=== PATIENT | male | born 1950 | race Caucasian/White ===

== ENCOUNTER 2016-12-21 07:23 | Day surgery (SDC) | payer BC ==
[2016-12-20 16:04] VITALS: BMI 32.8
[2016-12-21 08:06] VITALS: TEMP 96.7
[2016-12-21 11:57] LABS: PLEURAL FLUID SOURCE LFET PLEURAL
[2016-12-21 11:58] LABS: PLEURAL FLUID APPEARANCE CLOUDY; PLEURAL FLUID COLOR RED
[2016-12-21 12:18] LABS: PLEURAL FLUID LYMPHOCYTES 78 %; PLEURAL FLUID NEUTROPHIL 5 %
[2016-12-21 12:19] LABS: PLEURAL FLUID MACROPHAGES 3 %
[2016-12-21 12:32] LABS: GLUCOSE,PLEURAL FLUID 145.794; TOTAL PROTEIN,PLEURAL FLUID 4.753
[2016-12-21 14:55] VITALS: BP 104/60; PULSE 90
--- NOTE | 2016-12-24 13:37 | PATH ---
Cytology Non-Gynecological Report Patient Name: STEPHANY MEDINA [facility]. Rec. #: [id number] /Age/Gender: 1950 (Age: 66) / M Account: [id number] Location: RADIOLOGY Taken: 12/21/2016 Received: 12/21/2016 Reported: 12/24/2016 Physicians: Nathanael Alvarado M.D. Specimen(s) Received A: LEFT PLEURAL FLUID IN 50% ALCOHOL B: LEFT PLEURAL FLUID FRESH Clinical History Left pleural effusion Final Diagnosis A,B. PLEURAL FLUID, LEFT, THORACENTESIS: SATISFACTORY FOR EVALUATION. NO MALIGNANT CELLS IDENTIFIED. REACTIVE MESOTHELIAL CELLS, HISTIOCYTES AND LYMPHOCYTES. Electronically Signed Philip Villanueva M.D. Gross Description A. Received is a 50 cc of bloody colored fluid in 50% alcohol. One cytofunnel slide and one cell block are made. B. Received is 1200 cc of bloody colored fluid fresh. One cytofunnel slide and one cell block are made.
== END 2016-12-21 14:57 | disposition home or self-care (01) ==
LOC: JRADIR 07:23
PROVIDERS: ATTEND Internal Medicine Cardiovascular Disease
PROC: 0W9B3ZZ Drainage of Left Pleural Cavity, Percutaneous Approach (ICD-10-PCS; principal; 2016-12-21)
PROC: BB4BZZZ Ultrasonography of Pleura (ICD-10-PCS; 2016-12-21)
DX: J90 Pleural effusion, not elsewhere classified (principal)
CPT/HCPCS: 71010-TC; 76942; 82042; 82150; 82438; 82945; 83615; 84157; 84311; 84478; 87070; 87075; 87102; 87116; 87205; 87206; 87210; 88108; 88305-TC; 89051

== ENCOUNTER 2017-01-17 07:30 | Day surgery (SDC) | payer BC ==
[2017-01-16 14:36] VITALS: BMI 32.6
[2017-01-17 08:11] VITALS: TEMP 97.9
[2017-01-17 08:25] LABS: INR 1.09 (0.82-1.09)
[2017-01-17 11:14] VITALS: BP 137/64; PULSE 87
[2017-01-17 11:18] LABS: GLUCOSE,PLEURAL FLUID 133.704; TOTAL PROTEIN,PLEURAL FLUID 5.437
[2017-01-17 11:22] LABS: PLEURAL FLUID APPEARANCE HAZY; PLEURAL FLUID COLOR AMBER; PLEURAL FLUID SOURCE LEFT PLEURAL
[2017-01-17 11:59] LABS: PLEURAL FLUID LYMPHOCYTES 58 %; PLEURAL FLUID MACROPHAGES 38 %; PLEURAL FLUID NEUTROPHIL 2 %
--- NOTE | 2017-01-18 15:27 | PATH ---
Cytology Non-Gynecological Report Patient Name: STEPHANY MEDINA [facility]. Rec. #: [id number] /Age/Gender: 1950 (Age: 66) / M Account: [id number] Location: RADIOLOGY Taken: 01/17/2017 Received: 01/18/2017 Reported: 01/18/2017 Physicians: Nathanael Alvarado M.D. Specimen(s) Received A: LEFT PLEURAL FLUID IN 50% ALCOHOL B: LEFT PLEURAL FLUID FRESH Clinical History Pleural effusion Final Diagnosis A,B. PLEURAL FLUID, LEFT, THORACENTESIS: SATISFACTORY FOR EVALUATION. NO MALIGNANT CELLS IDENTIFIED. REACTIVE MESOTHELIAL CELLS, HISTIOCYTES AND LYMPHOCYTES. Electronically Signed Philip Villanueva M.D. Gross Description A. Received is a 50 cc of yellow fluid in 50% alcohol. One cytofunnel slide and one cell block are made. B. Received is 2000 cc of bloody in color fluid fresh. One cytofunnel slide and one cell block are made.
== END 2017-01-17 11:19 | disposition home or self-care (01) ==
LOC: JRADIR 07:30
PROVIDERS: ATTEND Internal Medicine Cardiovascular Disease
PROC: 0W9B3ZZ Drainage of Left Pleural Cavity, Percutaneous Approach (ICD-10-PCS; principal; 2017-01-17)
PROC: BB4BZZZ Ultrasonography of Pleura (ICD-10-PCS; 2017-01-17)
DX: J90 Pleural effusion, not elsewhere classified (principal)
CPT/HCPCS: 36415; 71010-TC; 76942; 82042; 82150; 82945; 83615; 84157; 84478; 85610; 87070; 87075; 87102; 87116; 87205; 87206; 87210; 87899; 88108; 88305-TC; 89051

== ENCOUNTER 2017-05-03 21:24 | Inpatient (IN) | payer BC ==
[2017-05-03] MEDS ORDERED: METOPROLOL TARTRATE 5 MG/5 ML VIAL IVPUSH ONE ×2 (21:46→22:44)
[2017-05-03] MEDS ORDERED: METOPROLOL TARTRATE 5 MG/5 ML VIAL ONE ×2 (22:13→23:01)
[2017-05-03 22:20] LABS: BASOPHIL 0.5 % (0-2.0); EOSINOPHIL 2.8 % (0-4.5); MCH 28.1 pg (25.7-33.7); MCHC 33.7 g/dl (32.0-35.9); MEAN CELL VOLUME 83.5 fl (80-96); MEAN PLT VOLUME 8.1 fl (7.5-11.1); NEUTROPHILS 58.9 % (42.8-82.8); PLATELET COUNT 221 K/MM3 (134-434); RDW 19.3 % (11.9-15.9); WHITE BLOOD COUNT 9.7 K/mm3 (4.0-10.0)
[2017-05-03 22:33] LABS: INR 1.1 (0.82-1.09); PROTHROMBIN TIME (PATIENT) 12.1 SEC (9.98-11.88)
[2017-05-03 22:36] LABS: ACTIVATED PTT 28.4 SECONDS (26.9-34.4)
[2017-05-03] MEDS ORDERED: dilTIAZem HCL 50 MG/10 ML - 10 ML VIAL IVPUSH ONE (23:21)
--- NOTE | 2017-05-03 23:32 | PDOC ---
History of Present Illness - General History Source: Patient Exam Limitations: No Limitations - History of Present Illness Initial Comments: 05/03/17 23:43 Patient is a 66 year old female with a significant past medical history of diabetes who presents to the ED with complaints of heart palpitations that began early today. Patient was advised to come to the ED by his PMD due to increase heart rate. Patient reports he has been non compliant with his medications since having his colonoscopy 4 days ago. Patient reports intermittent left leg cramps at night intense keep him from sleeping. He reports experiencing SOB secondary to increased heart rate. Patient reports hx of water in lung, prescribed medication, with slowly reduced dosage over last few months. Denies chest pain. Allergies Social history: Former smoker(10 years). No alcohol. No illicit drugs. Surgical history: Colonoscopy. Heart surgery. . PMD: Nikolai <Javier Dawson - Last Filed: 05/03/17 23:43> <Ashley May - Last Filed: 05/04/17 01:13> - General Chief Complaint: Palpitations Stated Complaint: PALPATATIONS Time Seen by Provider: 05/03/17 21:36 Past History <Javier Dawson - Last Filed: 05/03/17 23:43> - Past Medical History Anemia: No Asthma: No Cancer: No Cardiac Disorders: Yes ("WATER AROUND THE HEART.") CVA: No COPD: No CHF: Yes Dementia: No Diabetes: Yes GI Disorders: No Disorders: No HTN: No Hypercholesterolemia: No Liver Disease: No Seizures: No Thyroid Disease: No - Surgical History Abdominal Surgery: No Appendectomy: No Cardiac Surgery: Yes (CORONARY BYPASS , 2 VESSELS) Cholecystectomy: No Lung Surgery: No Neurologic Surgery: No Orthopedic Surgery: No - Suicide/Smoking/Psychosocial Hx Smoking History: Former smoker Have you smoked in the past 12 months: No If you are a former smoker, when did you quit?: 1999 Information on smoking cessation initiated: No Hx Alcohol Use: No Drug/Substance Use Hx: No Substance Use Type: Alcohol Hx Substance Use Treatment: No <Ashley May - Last Filed: 05/04/17 01:13> - Past Medical History Allergies/Adverse Reactions: Allergies Allergy/AdvReac Type Severity Reaction Status Date / Time No Known Allergies Allergy Verified 05/03/17 21:31 Home Medications: Ambulatory Orders Amiodarone HCl 200 mg PO DAILY 12/20/16 Aspirin [Aspirin EC] 81 mg PO DAILY 12/20/16 Atorvastatin Calcium 20 mg PO HS 12/20/16 Furosemide [Lasix] 80 mg PO DAILY 12/20/16 Glyburide 5 mg PO BID 12/20/16 Levothyroxine Sodium [Unithroid] 75 mg PO DAILY 12/20/16 Metoprolol Succinate [Toprol XL -] 25 mg PO DAILY 12/20/16 Potassium Chloride [Klor-Con M20] 40 meq PO BID 12/20/16 Sitagliptin Phos/Metformin HCl [Janumet 50-1,000 mg Tablet] 1 tablet PO BID 06/28 Review of Systems - Review of Systems Able to Perform ROS?: Yes Comments:: 05/03/17 23:43 GENERAL/CONSTITUTIONAL: No fever or chills. No weakness. HEAD, EYES, EARS, NOSE AND THROAT: No change in vision. No ear pain or discharge. No sore throat. GASTROINTESTINAL: No nausea, vomiting, diarrhea or constipation. GENITOURINARY: No dysuria, frequency, or change in urination. CARDIOVASCULAR: +SOB No chest pain RESPIRATORY: No cough, wheezing, or hemoptysis. MUSCULOSKELETAL: No joint or muscle swelling or pain. No neck or back pain. SKIN: No rash NEUROLOGIC: No headache, vertigo, loss of consciousness, or change in strength/ sensation. ENDOCRINE: No increased thirst. No abnormal weight change. HEMATOLOGIC/LYMPHATIC: No anemia, easy bleeding, or history of blood clots. ALLERGIC/IMMUNOLOGIC: No hives or skin allergy. All Other Systems: Reviewed and Negative <Javier Dawson - Last Filed: 05/03/17 23:43> *Physical Exam - Vital Signs Last Vital Signs Temp Pulse Resp BP Pulse Ox 98.1 F 148 H 20 97/66 96 05/03/17 21:29 05/03/17 23:05/03/17 21:29 05/03/17 23:05/03/17 21:29 - Physical Exam Comments: 05/03/17 23:44 GENERAL: Awake, alert, and fully oriented, in no acute distress HEAD: No signs of trauma EYES: PERRLA, EOMI, sclera anicteric, conjunctiva clear ENT: Auricles normal inspection, hearing grossly normal, nares patent, oropharynx clear without exudates. Moist mucosa NECK: Normal ROM, supple, no lymphadenopathy, JVD, or masses LUNGS: +Diminished breath sounds at bases. Clear to auscultation bilaterally. No wheezes, and no crackles HEART: +Tachycardic. Regular rate and rhythm, normal S1 and S2, no murmurs, rubs or gallops ABDOMEN: +Obese belly. Soft, nontender, normoactive bowel sounds. No guarding, no rebound. No masses EXTREMITIES: +No lower extremity edema bilaterally. Normal range of motion No clubbing or cyanosis. No cords, erythema, or tenderness NEUROLOGICAL: Cranial nerves II through XII grossly intact. Normal speech, SKIN: Warm, Dry, normal turgor, no rashes or lesions noted. <Javier Dawson - Last Filed: 05/03/17 23:43> - Vital Signs Last Vital Signs Temp Pulse Resp BP Pulse Ox 98.1 F 148 H 20 97/66 96 05/03/17 21:29 05/03/17 23:09 05/03/17 21:29 05/03/17 23:09 05/03/17 21:29 <Ashley May - Last Filed: 05/04/17 01:13> ED Treatment Course - LABORATORY CBC & Chemistry Diagram: 05/03/17 22:07 05/03/17 22:07 - ADDITIONAL ORDERS Additional order review: Laboratory Results 05/03/17 05/03/17 05/03/17 22:07 22:07 22:07 PT with INR 12.10 H INR 1.10 PTT (Actin FS) 28.4 Sodium Cancelled Potassium Cancelled Chloride Cancelled Carbon Dioxide Cancelled Anion Gap Cancelled BUN Cancelled Creatinine Cancelled Creat Clearance w eGFR Cancelled Random Glucose Cancelled Calcium Cancelled Magnesium Cancelled Total Bilirubin Cancelled AST Cancelled ALT Cancelled Alkaline Phosphatase Cancelled Creatine Kinase Cancelled Troponin I Cancelled B-Natriuretic Peptide 1325.60 H Total Protein Cancelled Albumin Cancelled 05/03/17 22:07 RBC 4.17 MCV 83.5 MCHC 33.7 RDW 19.3 H MPV 8.1 Neutrophils % 58.9 Lymphocytes % 22.1 D Monocytes % 15.7 H Eosinophils % 2.8 Basophils % 0.5 - Medications Given in the ED: ED Medications Discontinued Medications Generic Name Dose Route Start Last Admin Trade Name Freq PRN Reason Stop Dose Admin Metoprolol Tartrate 5 mg 05/03/17 21:46 05/03/17 22:20 Lopressor Injection - IVPUSH 05/03/17 21:47 5 mg ONCE ONE Administration Metoprolol Tartrate 5 mg 05/03/17 22:44 05/03/17 23:09 Lopressor Injection - IVPUSH 05/03/17 22:45 5 mg ONCE ONE Administration <Javier Dawson - Last Filed: 05/03/17 23:43> - LABORATORY CBC & Chemistry Diagram: 05/03/17 22:07 05/04/17 00:12 - ADDITIONAL ORDERS Additional order review: Laboratory Results 05/03/17 05/03/17 05/03/17 22:07 22:07 22:07 PT with INR 12.10 H INR 1.10 PTT (Actin FS) 28.4 Sodium Cancelled Potassium Cancelled Chloride Cancelled Carbon Dioxide Cancelled Anion Gap Cancelled BUN Cancelled Creatinine Cancelled Creat Clearance w eGFR Cancelled Random Glucose Cancelled Calcium Cancelled Magnesium Cancelled Total Bilirubin Cancelled AST Cancelled ALT Cancelled Alkaline Phosphatase Cancelled Creatine Kinase Cancelled Troponin I Cancelled B-Natriuretic Peptide 1325.60 H Total Protein Cancelled Albumin Cancelled 05/03/17 22:07 RBC 4.17 MCV 83.5 MCHC 33.7 RDW 19.3 H MPV 8.1 Neutrophils % 58.9 Lymphocytes % 22.1 D Monocytes % 15.7 H Eosinophils % 2.8 Basophils % 0.5 - RADIOLOGY Radiology Studies Ordered: Category Date Time Status CHEST X-RAY PORTABLE* [RAD] Stat Radiology 05/03/17 21:46 Taken - Medications Given in the ED: ED Medications Discontinued Medications Generic Name Dose Route Start Last Admin Trade Name [id number] PRN Reason Stop Dose Admin Metoprolol Tartrate 5 mg 05/03/17 21:46 05/03/17 22:20 Lopressor Injection - IVPUSH 05/03/17 21:47 5 mg ONCE ONE Administration Metoprolol Tartrate 5 mg 05/03/17 22:44 05/03/17 23:09 Lopressor Injection - IVPUSH 05/03/17 22:45 5 mg ONCE ONE Administration <Ashley May - Last Filed: 05/04/17 01:13> Medical Decision Making - Medical Decision Making 05/03/17 23:[address] Flores @23:25pm. Dr. Perez Covering. Awaiting call back. Dr. Perez called back @23:30pm. Case discussed. <Javier Dawson - Last Filed: 05/03/17 23:43> - Critical Care Time Total Critical Care Time (minutes): 45 Critical Care Statement: The care of this patient involved high complexity decision making to prevent further life threatening deterioration of the patient 's condition and/or to evaluate & treat vital organ system(s) failure or risk of failure. - Medical Decision Making 05/04/17 00:25 a/p: 66yo male with aflutter after stopping his metoprolol earlier tonight. -pt with aflutter in the ED -labs -ekg -cxr -trops -cards discussion 05/04/17 00:35 pt still tachy - will start cardizem gtt case discussed with dr. coyne who will see the patient in consult. -case discussed with Keena from ICU who will see the patient in consult and accepts pt to ICU case discussed with DR. Perez who accepts admission. pt updated and agrees to stay for further eval 05/04/17 00:38 pt updated on labs and imaging. willing to stay for furhter eval. 05/04/17 01:13 pt going up to ICU bed 6 <Ashley May - Last Filed: 05/04/17 01:13> *DC/Admit/Observation/Transfer - Attestations Scribe Attestion: 05/03/17 23:44 Documentation prepared by Javier Dawson, acting as medical records administrator for Ashley May DO, MD/. <Javier Dawson - Last Filed: 05/03/17 23:43> - Discharge Dispostion Admit: Yes - Attestations Physician Attestion: 05/04/17 00:46 I, Dr. Ashley May DO, attest that this document has been prepared under my direction and personally reviewed by me in its entirety. I further attest, that it accurately reflects all work, treatment, procedures and medical decision -making performed by me. <Ashley May - Last Filed: 05/04/17 01:13> Diagnosis at time of Disposition: Flutter-fibrillation - Discharge Dispostion Condition at time of disposition: Guarded - Referrals
[2017-05-04] MEDS ORDERED: SODIUM CHLORIDE 0.9% 1000 ML INFUS.BAG IV ONE (00:04)
[2017-05-04] MEDS ORDERED: dilTIAZem HCL 60 MG TABLET (FP) ONE (00:20)
[2017-05-04] MEDS ORDERED: DILTIAZEM INJECTION 125 MG in DEXTROSE 5%-WATER - 100 ML IVPB SCH ×2 (00:30→09:42)
[2017-05-04] MEDS: dilTIAZem HCL 60 MG TABLET (FP) PO SCH ×4 (00:39→17:36)
[2017-05-04 00:47] LABS: ALBUMIN 3.1 g/dl (3.4-5.0); ANION GAP 8 (8-16); BILIRUBIN,TOTAL 0.6 mg/dL (0.2-1.0); CALCIUM 8.3 mg/dL (8.5-10.1); CO2 27 mmol/L (21-32); CREATININE 0.9 mg/dL (0.7-1.3); GLUCOSE,RANDOM 151 mg/dL (74-106); SGOT/AST 44 U/L (15-37); SGPT/ALT 94 U/L (12-78)
[2017-05-04 00:51] LABS: ALK PHOS 46 U/L (45-117); CPK 224 IU/L (39-308); TOT PROT 6.7 g/dl (6.4-8.2); TROPONIN I < 0.02 ng/ml (0.00-0.05)
[2017-05-04 01:23] LABS: THYROID STIMULATING HORMONE 4.57 uIU/ml (0.358-3.74)
[2017-05-04 02:05] VITALS: BMI 34.4
--- NOTE | 2017-05-04 02:44 | CONSULT ---
Consult Consult Specialty:: Pulm/CCM Reason for Consultation:: Refractory A-flutter with RVR - History of Present Illness Chief Complaint: Palpitations History of Present Illness: 66yom with PMHx of DMII, HLD, CAD s/p CABG in 12/26, recurrent pleural effusions , A-fib with RVR that was being treated with metoprolol, coumadin and Lasix. Pt stopped his meds last week for a routine colonoscopy and did not restart them. He stated that he began to experience some dyspnea with exertion and on a routine pulmonology follow up was noted to be in A-flutter to 150's. He was restarted on coumadin and sent to the ER for evaluation. In ER HR 149 A-flutter, BP 110/72. There was no improvement in HR with Lopressor 5 IV x2 and transient improvement with cardiazem 20 IV to HR 115 but not fully controlled. He was started on cardiazem drip and transferred to ICU for monitoring. Labs notable for INR 1.1, trop neg, BNP 1356, elevated CK-MB, AST/ALT. In ICU received A+O x3. HR 110 A-fib/flutter on cardiazem drip 10mg/hr, BP 109/ 80, RR25 O2 sat 93% on room air. He c/o palpitations and slight SOB but denied CP, lightheadedness, dizziness. Cardiazem drip increased to 15mg/h. Heparin drip started. Placed on NC O2 2L. - History Source History Provided By: Patient, Medical Record Limitations to Obtaining History: No Limitations - Past Medical History Cardio/Vascular: Yes: AFIB, CAD Pulmonary: Yes: Other (Recurrent bilat pleural effusions) Endocrine: Yes: Diabetes Mellitus - Past Surgical History Past Surgical History: Yes: CABG - Alcohol/Substance Use Hx Alcohol Use: No - Smoking History Smoking history: Former smoker Have you smoked in the past 12 months: No If you are a former smoker, when did you quit?: 1999 - Social History History of Recent Travel: No Home Medications - Allergies Allergies/Adverse Reactions: Allergies Allergy/AdvReac Type Severity Reaction Status Date / Time No Known Allergies Allergy Verified 05/03/17 21:31 - Home Medications Home Medications: Ambulatory Orders Amiodarone HCl 200 mg PO DAILY 12/20/16 Aspirin [Aspirin EC] 81 mg PO DAILY 12/20/16 Atorvastatin Calcium 20 mg PO HS 12/20/16 Furosemide [Lasix] 80 mg PO DAILY 12/20/16 Glyburide 5 mg PO BID 12/20/16 Levothyroxine Sodium [Unithroid] 75 mg PO DAILY 12/20/16 Metoprolol Succinate [Toprol XL -] 25 mg PO DAILY 12/20/16 Potassium Chloride [Klor-Con M20] 40 meq PO BID 12/20/16 Sitagliptin Phos/Metformin HCl [Janumet 50-1,000 mg Tablet] 1 tablet PO BID 06/28 Family Disease History - Family Disease History Family History: Unremarkable Review of Systems - Review of Systems Cardiovascular: reports: Palpitations Respiratory: reports: SOB on Exertion Gastrointestinal: reports: No Symptoms Neurological: reports: No Symptoms Endocrine: reports: No Symptoms Psychiatric: reports: No Symptoms Physical Exam Vital Signs: Vital Signs Temperature 99.1 F 05/04/17 01:56 Pulse Rate 119 H 05/04/17 02:00 Respiratory Rate 20 05/04/17 02:00 Blood Pressure 109/80 05/04/17 02:00 O2 Sat by Pulse Oximetry (%) 96 05/03/17 21:29 Constitutional: Yes: No Distress, Calm, Obese Eyes: Yes: WNL HENT: Yes: Normocephalic Neck: Yes: Supple, Trachea Midline Cardiovascular: Yes: Pulse Irregular Respiratory: Yes: Regular, Diminished, On Nasal O2 Gastrointestinal: Yes: Soft, Abdomen, Obese Renal/: Yes: WNL Extremities: Yes: WNL Edema: No Peripheral Pulses WNL: Yes Neurological: Yes: Alert, Oriented ...Motor Strength: WNL Psychiatric: Yes: WNL Labs: CBC,CMP WBC 9.7 K/mm3 (4.0-10.0) D 05/03/17 22:07 RBC 4.17 M/mm3 (4.00-5.60) 05/03/17 22:07 Hgb 11.7 GM/dL (11.7-16.9) 05/03/17 22:07 Hct 34.8 % (35.4-49) L 05/03/17 22:07 MCV 83.5 fl (80-96) 05/03/17 22:07 MCH 28.1 pg (25.7-33.7) 05/03/17 22:07 MCHC 33.7 g/dl (32.0-35.9) 05/03/17 22:07 RDW 19.3 % (11.9-15.9) H 05/03/17 22:07 Plt Count 221 K/MM3 (134-434) D 05/03/17 22:07 MPV 8.1 fl (7.5-11.1) 05/03/17 22:07 Neutrophils % 58.9 % (42.8-82.8) 05/03/17 22:07 Lymphocytes % 22.1 % (8-40) D 05/03/17 22:07 Monocytes % 15.7 % (3.8-10.2) H 05/03/17 22:07 Eosinophils % 2.8 % (0-4.5) 05/03/17 22:07 Basophils % 0.5 % (0-2.0) 05/03/17 22:07 Sodium 137 mmol/L (136-145) 05/04/17 00:12 Potassium 4.1 mmol/L (3.5-5.1) 05/04/17 00:12 Chloride 102 mmol/L (98-107) 05/04/17 00:12 Carbon Dioxide 27 mmol/L (21-32) 05/04/17 00:12 Anion Gap 8 (8-16) 05/04/17 00:12 BUN 25 mg/dL (7-18) H D 05/04/17 00:12 Creatinine 0.9 mg/dL (0.7-1.3) 05/04/17 00:12 Creat Clearance w eGFR > 60 (>60) 05/04/17 00:12 Random Glucose 151 mg/dL (74-106) H 05/04/17 00:12 Calcium 8.3 mg/dL (8.5-10.1) L 05/04/17 00:12 Magnesium Cancelled 05/03/17 22:07 Total Bilirubin 0.6 mg/dL (0.2-1.0) D 05/04/17 00:12 AST 44 U/L (15-37) H 05/04/17 00:12 ALT 94 U/L (12-78) H 05/04/17 00:12 Alkaline Phosphatase 46 U/L (45-117) 05/04/17 00:12 Creatine Kinase 224 IU/L (39-308) 05/04/17 00:12 Creatine Kinase Index 1.8 % (0.0-5.0) 05/04/17 00:12 CK-MB (CK-2) 4.155 ng/mL (0.5-3.6) H 05/04/17 00:12 Troponin I < 0.02 ng/ml (0.00-0.05) 05/04/17 00:12 B-Natriuretic Peptide 1325.60 pg/ml (5-125) H 05/03/17 22:07 Total Protein 6.7 g/dl (6.4-8.2) 05/04/17 00:12 Albumin 3.1 g/dl (3.4-5.0) L 05/04/17 00:12 TSH 4.57 uIU/ml (0.358-3.74) H 05/04/17 00:12 INR, PTT INR 1.10 (0.82-1.09) 05/03/17 22:07 Active Medications Amiodarone HCl (Cordarone -) 200 mg PO DAILY [facility] Aspirin (Ecotrin -) 81 mg PO DAILY [facility] Diltiazem HCl (Cardizem -) 60 mg PO Q6HPO [facility] Last Admin: 05/04/17 00:39 Dose: 60 mg Furosemide (Lasix Injection -) 40 mg IVPUSH DAILY [facility] Glyburide (Diabeta -) 5 mg PO BIDAC [facility] Heparin Sodium (Porcine) (Heparin -) 1,000 unit IVPUSH PRN PRN PRN Reason: Heparin Heparin Sodium (Porcine) (Heparin -) 5,000 unit IVPUSH PRN PRN PRN Reason: Heparin Diltiazem HCl 125 mg/ Dextrose 125 mls @ 5 mls/hr IVPB TITR [facility]; 5 MG/HR PRN Reason: Protocol Last Titration: 05/04/17 01:55 Dose: 15 mg/hr Heparin Sodium (Porcine) 25, (000 unit/ Sodium Chloride) 500 mls @ 20 mls/hr IV TITR [facility]; 1,000 UNIT/HR PRN Reason: Protocol Insulin Aspart (Novolog Vial Sliding Scale -) 1 vial SQ ACHS [facility] PRN Reason: Protocol Levothyroxine Sodium (Synthroid -) 75 mcg PO DAILY@0700 [facility] Non-Formulary Medication (Atorvastatin Calcium) 20 mg PO HS [facility] Non-Formulary Medication (Sitagliptin Phos/Metformin Hcl [Janumet 50-1,000 Mg Tablet]) 1 tablet PO BID [facility] Pneumococcal 13-Valent Conj Vacc (Prevnar 13 Syringe -) 0.5 ml IM .ONCE ONE Stop: 05/04/17 02:06 Potassium Chloride (K-Dur -) 40 meq PO BID [facility] Intake & Output 05/01/17 05/02/17 05/03/17 05/04/17 23:59 23:59 23:59 23:59 Weight 104.326 kg 105.9 kg Imaging - Results Chest X-ray: Image Reviewed (trace bilat effusions L>R) Problem List - Problems (1) Flutter-fibrillation Code(s): I49.8 - OTHER SPECIFIED CARDIAC ARRHYTHMIAS (2) SOB (shortness of breath) on exertion Code(s): R06.02 - SHORTNESS OF BREATH Assessment/Plan 66yom with PMHx DMII. CAD s/p CABG c/b A-fib now with A-fib with RVR 2/2 to med non-compliance and requiring cardizem drip. Plan: -Cardizem drip for rate control goal HR 60-90 -Hold for SBP < 90 -Consider amiodarone bolus and drip if no improvement -Heparin dip for therapeutic PTT -Cont coumadin for INR 2-3 -Cont statin and aspirin - NC O2 support for O2 sat>95% -TTE in am -Trend BNP -Lasix IV for goal net neg -fingersticks -Cont DMII regimen -Cardiac diet as denzel -DVT proph and PPI ITZEL Griffith [facility] time 35mins
[2017-05-04] MEDS ORDERED: HEPARIN NA (PORCINE) 5,000 UNITS/ML 1ML VIAL IVPUSH PRN ×4 (03:12→03:37)
[2017-05-04] MEDS ORDERED: HEPARIN - 25,000 UNIT in SODIUM CHLORIDE 495 ML IV SCH (03:15)
[2017-05-04] MEDS ORDERED: HEPARIN INFUSION - 500 ML IVPB SCH (03:45)
[2017-05-04 05:54] LABS: BASOPHIL 0.5 % (0-2.0); EOSINOPHIL 2.4 % (0-4.5); MCH 27.9 pg (25.7-33.7); MCHC 33.5 g/dl (32.0-35.9); MEAN CELL VOLUME 83.1 fl (80-96); MEAN PLT VOLUME 8.4 fl (7.5-11.1); NEUTROPHILS 60.6 % (42.8-82.8); PLATELET COUNT 200 K/MM3 (134-434); RDW 19.3 % (11.9-15.9); WHITE BLOOD COUNT 8.4 K/mm3 (4.0-10.0)
[2017-05-04 06:16] LABS: INR 1.11 (0.82-1.09); PROTHROMBIN TIME (PATIENT) 12.2 SEC (9.98-11.88)
[2017-05-04 06:37] LABS: ANION GAP 5 (8-16); BILIRUBIN,TOTAL 0.5 mg/dL (0.2-1.0); CALCIUM 8.5 mg/dL (8.5-10.1); CO2 29 mmol/L (21-32); CREATININE 0.8 mg/dL (0.7-1.3); GLUCOSE,RANDOM 217 mg/dL (74-106); SGOT/AST 36 U/L (15-37); SGPT/ALT 83 U/L (12-78); TOT PROT 6.4 g/dl (6.4-8.2)
[2017-05-04 06:38] LABS: ALK PHOS 42 U/L (45-117)
[2017-05-04] MEDS ORDERED: INSULIN SLIDING SCALE (NOVOLOG) 1 VIAL SQ SCH (07:00)
[2017-05-04] MEDS ORDERED: sitaGLIPtin PHOSPHATE 50 MG TABLET PO SCH (07:00)
[2017-05-04] MEDS ORDERED: glyBURIDE 5 MG TABLET (UD) PO SCH (07:00)
[2017-05-04] MEDS ORDERED: metFORMIN HCL 500 MG TABLET (FP) PO SCH (07:00)
[2017-05-04] MEDS ORDERED: LEVOTHYROXINE NA 75 MCG TABLET (FP) PO SCH (07:00)
[2017-05-04] MEDS ORDERED: PNEUMOC 13-VAL CONJ-DIP CRM/PF 0.5 ML DISP.SYRIN IM ONE (09:00)
[2017-05-04] MEDS ORDERED: FLU VACCINE QUAD 60 MCG/0.5 ML (MDV 17-18) IM ONE (09:00)
--- NOTE | 2017-05-04 09:14 | HP ---
Admitting History and Physical - Admission Chief Complaint: fast heart rate, sent by [employer] History of Present Illness: Had routine visit with [employer] yesterday, noted to have tachycardia, sent to ED and found to be in rapid afib. Patient had CABG surgery 6 mos ago, complicated by pleural effusion, requiring drainage, and had pulmonary follow- up for that. He had a colonoscopy last week and was to hold his coumadin, but stopped all his medications except his diabetic medication and did not restart them (thought he could stop them, as he felt he may not need them any more). No chest pain, did have palpitations yesterday. Patient required cardizem drip , so admitted to ICU. History Source: Patient, Medical Record Limitations to Obtaining History: No Limitations - Past Medical History Cardiovascular: Yes: AFIB, CAD Pulmonary: Yes: Other (Recurrent bilat pleural effusions) Endocrine: Yes: Diabetes Mellitus - Past Surgical History Past Surgical History: Yes: CABG - Smoking History Smoking history: Former smoker Have you smoked in the past 12 months: No If you are a former smoker, when did you quit?: 1999 - Alcohol/Substance Use Hx Alcohol Use: No - Social History Occupation: [employer] History of Recent Travel: No Other Social History: , 2 children Home Medications - Allergies Allergies/Adverse Reactions: Allergies Allergy/AdvReac Type Severity Reaction Status Date / Time No Known Allergies Allergy Verified 05/03/17 21:31 - Home Medications Home Medications: Ambulatory Orders Amiodarone HCl 200 mg PO DAILY 12/20/16 Aspirin [Aspirin EC] 81 mg PO DAILY 12/20/16 Atorvastatin Calcium 20 mg PO HS 12/20/16 Furosemide [Lasix] 80 mg PO DAILY 12/20/16 Glyburide 5 mg PO BID 12/20/16 Levothyroxine Sodium [Unithroid] 75 mg PO DAILY 12/20/16 Metoprolol Succinate [Toprol XL -] 25 mg PO DAILY 12/20/16 Potassium Chloride [Klor-Con M20] 40 meq PO BID 12/20/16 Sitagliptin Phos/Metformin HCl [Janumet 50-1,000 mg Tablet] 1 tablet PO BID 06/28 Family Disease History - Family Disease History Family Disease History: Diabetes: Father, Other: Mother (alcoholism) Review of Systems - Review of Systems Constitutional: denies: Fever, Loss of Appetite Eyes: reports: No Symptoms HENT: denies: Difficult Swallowing, Epistaxis Neck: denies: Decreased ROM, Stiffness, Tenderness Cardiovascular: reports: Palpitations. denies: Chest Pain Respiratory: denies: Cough, Hemoptysis, Wheezing Gastrointestinal: denies: Abdominal Pain, Constipation, Diarrhea, Nausea, Vomiting Genitourinary: denies: Burning, Discharge, Dysuria Physical Examination Vital Signs: Vital Signs Temperature 98.2 F 05/04/17 06:00 Pulse Rate 95 H 05/04/17 06:00 Respiratory Rate 20 05/04/17 06:00 Blood Pressure 111/72 05/04/17 06:00 O2 Sat by Pulse Oximetry (%) 97 05/04/17 03:00 Constitutional: Yes: Well Nourished, No Distress, Calm Eyes: Yes: EOM Intact, PERRL HENT: Yes: Atraumatic, Normocephalic Neck: Yes: Supple Cardiovascular: Yes: Pulse Irregular. No: Murmur Respiratory: Yes: Regular, CTA Bilaterally Gastrointestinal: Yes: Normal Bowel Sounds, Soft. No: Distention, Tenderness Edema: No Neurological: Yes: Alert, Oriented Labs: CBC, BMP 05/04/17 05:15 05/04/17 05:15 Imaging - Results Chest X-ray: Report Reviewed (-cardiomegaly, prior OHS) Problem List - Problems (1) Atrial fibrillation with RVR Assessment/Plan: -on cardizem drip, heparin drip (to convert to Eliquis, as will need AC following hospital too) -cardio consulted Code(s): I48.91 - UNSPECIFIED ATRIAL FIBRILLATION (2) CAD (coronary artery disease) Assessment/Plan: -restarted on aspirin, lipitor Code(s): I25.10 - ATHSCL HEART DISEASE OF [place] CORONARY ARTERY W/O ANG PCTRS (3) Hx of CABG Assessment/Plan: --restarted on cardiac medications Code(s): Z95.1 - PRESENCE OF AORTOCORONARY BYPASS GRAFT (4) Diabetes mellitus Assessment/Plan: -follow FS here in hospital, to continue oral hypoglycemics Code(s): E11.9 - TYPE 2 DIABETES MELLITUS WITHOUT COMPLICATIONS (5) Hypothyroid Assessment/Plan: -TSH elevated -follow for now -may need adjustment in synthroid dose Code(s): E03.9 - HYPOTHYROIDISM, UNSPECIFIED (6) CHF (congestive heart failure) Assessment/Plan: -lasix IV for now Code(s): I50.9 - HEART FAILURE, UNSPECIFIED (7) Pleural effusion Assessment/Plan: -CXR not showing much effusion currently Code(s): J90 - PLEURAL EFFUSION, NOT ELSEWHERE CLASSIFIED
--- NOTE | 2017-05-04 09:35 | PN ---
Progress Note (short form) - Note Progress Note: PULMONARY/CCM Pt seen and examined in the ICU. Agree with overnight [employer] plan, heart rates better now better controlled on PO meds. Titrate off cardizem gtt and can monitor on telemetry. Jose Bonilla MD
--- NOTE | 2017-05-04 09:45 | EKG ---
Test Reason : Blood Pressure : / mmHG Vent. Rate : 115 BPM Atrial Rate : 293 BPM P-R Int : 000 ms QRS Dur : 104 ms QT Int : 228 ms P-R-T Axes : 078 -49 241 degrees QTc Int : 315 ms ATRIAL FLUTTER WITH VARIABLE A-V BLOCK INCOMPLETE RIGHT BUNDLE BRANCH BLOCK LEFT ANTERIOR FASCICULAR BLOCK NONSPECIFIC ST AND T WAVE ABNORMALITY ABNORMAL ECG Confirmed by MD LEILA, HOME ([id number]) on 05/04/2017 9:45:04 AM Referred By: Confirmed By:HOME DEE MD
[2017-05-04] MEDS ORDERED: ASPIRIN COATED 81 MG TABLET.EC PO SCH (10:00)
[2017-05-04] MEDS ORDERED: AMIODARONE HCL 200 MG TABLET (FP) PO SCH (10:00)
[2017-05-04] MEDS ORDERED: FUROSEMIDE 40 MG/4 ML INJECTABLE VIAL IVPUSH SCH ×2 (10:00)
[2017-05-04] MEDS ORDERED: POTASSIUM CHLORIDE TABS 20 MEQ TABLET.ER (FP) PO SCH (10:00)
[2017-05-04] MEDS ORDERED: APIXABAN 5 MG TABLET PO SCH (10:00)
[2017-05-04] MEDS ORDERED: PATIENT'S OWN MEDICATION (NON-FORMULARY) (Sitagliptin Phos/Metformin Hcl [Janumet 50-1,000 PO SCH (10:00)
--- NOTE | 2017-05-04 10:56 | CON.CARD ---
Cardiology Consult (text) - Consultation Consultation Note: cc: palps, aflutter with rvr hpi: 66 m hx dm, hld, cad s/p cabg 12/2016 with recurrent post op pleural effs, post op afib/flutter that resolved, here with palps, aflutter with rvr. Pt has been feeling well until yesterday when he noticed heart racing, fatigue. Went to pulm visit and found to be back in rvr. He was rec'd to go to ER and initially declined but then later changed his mind due to palps/fatigue. In ER had aflutter with VR 140s. After dilt gtt hr improved and now comfortable, no complaints. Had no cp, sob, dizzy, loc, pnd, orthopnea, le edema. Sees dr cruz for cardio. pmh: per hpi psh: cabg social: no tob fam: no premature cad ros: per hpi; no nvd, cough, nasal congestion, orta, vision changes, gib, hematuria, dysuria, muscle pains meds: Ambulatory Orders Amiodarone HCl 200 mg PO DAILY 12/20/16 Aspirin [Aspirin EC] 81 mg PO DAILY 12/20/16 Atorvastatin Calcium 20 mg PO HS 12/20/16 Furosemide [Lasix] 80 mg PO DAILY 12/20/16 Glyburide 5 mg PO BID 12/20/16 Levothyroxine Sodium [Unithroid] 75 mg PO DAILY 12/20/16 Metoprolol Succinate [Toprol XL -] 25 mg PO DAILY 12/20/16 Potassium Chloride [Klor-Con M20] 40 meq PO BID 12/20/16 Sitagliptin Phos/Metformin HCl [Janumet 50-1,000 mg Tablet] 1 tablet PO BID 06/28 pe: Vital Signs Period Temp Pulse Resp BP Sys/Suero Pulse Ox Last 24 Hr 98.1 F-99.1 F 95-149 18-24 94-130/64-87 94-97 nad no jvd irreg s1s2 no mrg cta bl nl eff aaox3 no le e/c/c abd nd nt pos bs no jaundice diaphoresis pos dp pt no carotid bruits Laboratory Last Values WBC 8.4 K/mm3 (4.0-10.0) 05/04/17 05:15 RBC 3.92 M/mm3 (4.00-5.60) L 05/04/17 05:15 Hgb 10.9 GM/dL (11.7-16.9) L 05/04/17 05:15 Hct 32.6 % (35.4-49) L 05/04/17 05:15 MCV 83.1 fl (80-96) 05/04/17 05:15 MCH 27.9 pg (25.7-33.7) 05/04/17 05:15 MCHC 33.5 g/dl (32.0-35.9) 05/04/17 05:15 RDW 19.3 % (11.9-15.9) H 05/04/17 05:15 Plt Count 200 K/MM3 (134-434) 05/04/17 05:15 MPV 8.4 fl (7.5-11.1) 05/04/17 05:15 Neutrophils % 60.6 % (42.8-82.8) 05/04/17 05:15 Lymphocytes % 23.0 % (8-40) 05/04/17 05:15 Monocytes % 13.5 % (3.8-10.2) H 05/04/17 05:15 Eosinophils % 2.4 % (0-4.5) 05/04/17 05:15 Basophils % 0.5 % (0-2.0) 05/04/17 05:15 PT with INR 12.20 SEC (9.98-11.88) H 05/04/17 05:15 INR 1.11 (0.82-1.09) 05/04/17 05:15 PTT (Actin FS) 34.5 SECONDS (26.9-34.4) H 05/04/17 08:33 Sodium 136 mmol/L (136-145) 05/04/17 05:15 Potassium 3.9 mmol/L (3.5-5.1) 05/04/17 05:15 Chloride 102 mmol/L (98-107) 05/04/17 05:15 Carbon Dioxide 29 mmol/L (21-32) 05/04/17 05:15 Anion Gap 5 (8-16) L 05/04/17 05:15 BUN 21 mg/dL (7-18) H 05/04/17 05:15 Creatinine 0.8 mg/dL (0.7-1.3) 05/04/17 05:15 Creat Clearance w eGFR > 60 (>60) 05/04/17 05:15 Random Glucose 217 mg/dL (74-106) H D 05/04/17 05:15 Calcium 8.5 mg/dL (8.5-10.1) 05/04/17 05:15 Magnesium Cancelled 05/03/17 22:07 Total Bilirubin 0.5 mg/dL (0.2-1.0) 05/04/17 05:15 AST 36 U/L (15-37) 05/04/17 05:15 ALT 83 U/L (12-78) H 05/04/17 05:15 Alkaline Phosphatase 42 U/L (45-117) L 05/04/17 05:15 Creatine Kinase 224 IU/L (39-308) 05/04/17 00:12 Creatine Kinase Index 1.8 % (0.0-5.0) 05/04/17 00:12 CK-MB (CK-2) 4.155 ng/mL (0.5-3.6) H 05/04/17 00:12 Troponin I < 0.02 ng/ml (0.00-0.05) 05/04/17 00:12 B-Natriuretic Peptide 1325.60 pg/ml (5-125) H 05/03/17 22:07 Total Protein 6.4 g/dl (6.4-8.2) 05/04/17 05:15 Albumin 3.0 g/dl (3.4-5.0) L 05/04/17 05:15 TSH 4.57 uIU/ml (0.358-3.74) H 05/04/17 00:12 ecg 05/03/17: aflutter with rvr 149, nl qtc, no ischemic changes cxr: clear lungs tele: aflutter, hr 90s a/p: 66 m hx dm, hld, cad s/p cabg 12/2016 with recurrent post op pleural effs, post op afib/flutter, here with palps, aflutter with rvr. aflutter with rvr: -pt had hx of post cabg afib/flutter treated temporarily with amio and coumadin -had been feeling well until yesterday when developed rvr again -hr now controlled on dilt gtt. Has been started on po dilt as well. Cont to titrate off dilt gtt. -cont tele -[facility] 3 so has indication for ac. will start eliquis. hld: -cont statin cad, cabg: -stable, no signs acs, no anginal sxs -cont statin, asa recurrent pleural effs post cabg: -required thoracentesis in past -currently no sig pleural effs -pulm following
[2017-05-04] MEDS: APIXABAN 5 MG TABLET PO SCH ×2 (11:27→21:59)
[2017-05-04] MEDS: POTASSIUM CHLORIDE TABS 20 MEQ TABLET.ER (FP) PO SCH ×2 (11:27→21:59)
[2017-05-04] MEDS: ASPIRIN COATED 81 MG TABLET.EC PO SCH (11:27)
[2017-05-04] MEDS ORDERED: HEMOQUE TEST 1 EACH EACH ONE ×2 (11:32→16:54)
[2017-05-04] MEDS: INSULIN SLIDING SCALE (NOVOLOG) 1 VIAL SQ SCH ×3 (11:45→22:00)
[2017-05-04] MEDS: metFORMIN HCL 500 MG TABLET (FP) PO SCH (17:36)
[2017-05-04] MEDS: glyBURIDE 5 MG TABLET (UD) PO SCH (17:37)
[2017-05-04] MEDS: sitaGLIPtin PHOSPHATE 50 MG TABLET PO SCH (17:37)
[2017-05-04] MEDS ORDERED: PT OWN MED DRAWER 7, Y5N ONE (21:44)
[2017-05-04] MEDS ORDERED: ATORVASTATIN CA 20 MG TABLET (FP) PO SCH ×2 (22:00)
[2017-05-05 06:11] LABS: BASOPHIL 0.5 % (0-2.0); MCH 28.5 pg (25.7-33.7); MEAN CELL VOLUME 83.7 fl (80-96); MEAN PLT VOLUME 8.2 fl (7.5-11.1); NEUTROPHILS 62.9 % (42.8-82.8); PLATELET COUNT 216 K/MM3 (134-434); RDW 19.1 % (11.9-15.9); WHITE BLOOD COUNT 7.7 K/mm3 (4.0-10.0)
[2017-05-05 06:13] VITALS: TEMP 98
[2017-05-05] MEDS: sitaGLIPtin PHOSPHATE 50 MG TABLET PO SCH (06:14)
[2017-05-05] MEDS: metFORMIN HCL 500 MG TABLET (FP) PO SCH (06:14)
[2017-05-05] MEDS: glyBURIDE 5 MG TABLET (UD) PO SCH (06:14)
[2017-05-05] MEDS: INSULIN SLIDING SCALE (NOVOLOG) 1 VIAL SQ SCH (06:15)
[2017-05-05 06:38] LABS: ALBUMIN 3.1 g/dl (3.4-5.0); ALK PHOS 42 U/L (45-117); ANION GAP 5 (8-16); BILIRUBIN,TOTAL 0.5 mg/dL (0.2-1.0); CALCIUM 8.4 mg/dL (8.5-10.1); CO2 31 mmol/L (21-32); CREATININE 0.8 mg/dL (0.7-1.3); GLUCOSE,RANDOM 156 mg/dL (74-106); MAGNESIUM 1.9 mg/dL (1.8-2.4); SGOT/AST 37 U/L (15-37); SGPT/ALT 81 U/L (12-78); TOT PROT 6.8 g/dl (6.4-8.2)
[2017-05-05] MEDS ORDERED: LEVOTHYROXINE NA 75 MCG TABLET (FP) PO SCH (07:00)
[2017-05-05] MEDS ORDERED: PT OWN MED DRAWER 7, Y5N ONE (08:20)
--- NOTE | 2017-05-05 08:49 | PN ---
Progress Note (short form) - Note Progress Note: s: no cp sob palps dizzy o: Vital Signs Period Temp Pulse Resp BP Sys/Suero Pulse Ox Last 24 Hr 98 F-98.4 F 80-98 16-20 112-147/55-86 94-97 nad no jvd rrr s1s2 no mrg cta bl nl eff aaox3 no le e/c/c abd nd nt pos bs no jaundice diaphoresis Current Medications Generic Name Dose Route Start Last Admin Trade Name Frehemalatha PRN Reason Stop Dose Admin Apixaban 5 mg 05/04/17 10:00 05/04/17 21:59 Eliquis - PO 5 mg BID PRISCILLA Administration Aspirin 81 mg 05/04/17 10:00 05/04/17 11:27 Ecotrin - PO Not Given DAILY PRISCILLA Atorvastatin Calcium 20 mg 05/04/17 22:00 05/04/17 22:00 Lipitor - PO 20 mg HS PRISCILLA Administration Diltiazem HCl 240 mg 05/05/17 10:00 Cardizem Cd - PO DAILY PRISCILLA Furosemide 40 mg 05/05/17 10:00 Lasix - PO DAILY PRISCILLA Glyburide 5 mg 05/04/17 16:30 05/05/17 06:14 Diabeta - PO 5 mg BIDAC PRISCILLA Administration Diltiazem HCl 125 mg/ Dextrose 125 mls @ 5 mls/hr 05/04/17 09:42 05/04/17 12:00 IVPB Not Given TITR PRISCILLA Protocol 5 MG/HR Insulin Aspart 1 vial 05/04/17 11:00 05/05/17 06:15 Novolog Vial Sliding Scale - SQ Not Given ACHS PRISCILLA Protocol Levothyroxine Sodium 75 mcg 05/05/17 07:00 05/05/17 06:28 Synthroid - PO 75 mcg DAILY@0700 PRISCILLA Administration Metformin HCl 1,000 mg 05/04/17 16:30 05/05/17 06:14 Glucophage - PO 1,000 mg BID@0700,1630 PRISCILLA Administration Potassium Chloride 40 meq 05/04/17 10:00 05/04/17 21:59 K-Dur - PO 40 meq BID PRISCILLA Administration Sitagliptin Phosphate 50 mg 05/04/17 16:30 05/05/17 06:14 Januvia - PO 50 mg BID@0700,1630 PRISCILLA Administration CBC, BMP 05/05/17 05:15 05/05/17 05:15 ecg 05/03/17: aflutter with rvr 149, nl qtc, no ischemic changes cxr: clear lungs tele: sr a/p: 66 m hx dm, hld, cad s/p cabg 12/2016 with recurrent post op pleural effs, post op afib/flutter, here with palps, aflutter with rvr. aflutter with rvr: -pt had hx of post cabg afib/flutter treated temporarily with amio and coumadin -had been feeling well until day of admit when developed rvr again -hr controlled on dilt then went back to SR overnight -cont po dilt cd 240 qd -chadsvasc is 3 so has indication for ac. cont eliquis. hld: -cont statin cad, cabg: -stable, no signs acs, no anginal sxs -cont statin, asa recurrent pleural effs post cabg: -required thoracentesis in past -currently no sig pleural effs -pulm following cardiac barraza stable for dc
--- NOTE | 2017-05-05 09:01 | DS ---
Physical Examination Vital Signs: Vital Signs Temperature 98 F 05/05/17 06:00 Pulse Rate 98 H 05/05/17 06:00 Respiratory Rate 16 05/05/17 06:00 Blood Pressure 147/72 05/05/17 06:00 O2 Sat by Pulse Oximetry (%) 94 L 05/05/17 02:09 Constitutional: Yes: Well Nourished, No Distress Neck: Yes: Supple, Trachea Midline Cardiovascular: Yes: Pulse Irregular, S1, S2. No: Murmur Respiratory: Yes: Regular, CTA Bilaterally. No: Rales, Rhonchi, Wheezes Gastrointestinal: Yes: Normal Bowel Sounds, Soft. No: Distention, Tenderness Edema: No Neurological: Yes: Alert, Oriented Labs: CBC, BMP 05/05/17 05:15 05/05/17 05:15 Discharge Summary Reason For Visit: FLUTTER FIBRILLATION Current Active Problems Atrial fibrillation with RVR (Acute) CAD (coronary artery disease) (Acute) CHF (congestive heart failure) (Acute) Diabetes mellitus (Acute) Flutter-fibrillation (Acute) Hx of CABG (Acute) Hypothyroid (Acute) Pleural effusion (Acute) SOB (shortness of breath) on exertion (Acute) Hospital Course: 66 yo male admitted with afib RVR. Had stopped all cardiac meds prior to hospitalization. had been on coumadin, now on Eliquis, rate controlled with cardizem drip, then transitioned to oral cardizem (now will be off metoprolol). Feels well, no palpitations, no chest pain. Will follow up with cardio post- hospital. Condition: Fair - Instructions Diet, Activity, Other Instructions: diabetic Referrals: Hunter Menchaca MD [Primary Care Provider] - Andrew Jaime MD [Staff Physician] - Disposition: HOME - Home Medications Comprehensive Discharge Medication List: Ambulatory Orders Amiodarone HCl 200 mg PO DAILY 12/20/16 Aspirin [Aspirin EC] 81 mg PO DAILY 12/20/16 Atorvastatin Calcium 20 mg PO HS 12/20/16 Glyburide 5 mg PO BID 12/20/16 Levothyroxine Sodium [Unithroid] 75 mg PO DAILY 12/20/16 Potassium Chloride [Klor-Con M20] 40 meq PO BID 12/20/16 Sitagliptin Phos/Metformin HCl [Janumet 50-1,000 mg Tablet] 1 tablet PO BID 06/28 Apixaban [Eliquis -] 5 mg PO BID #60 tablet 05/05/17 Aspirin Coated [Ecotrin -] 81 mg PO DAILY #30 tab 05/05/17 Diltiazem Cd [Cardizem Cd -] 240 mg PO DAILY #30 cap 05/05/17 Furosemide [Lasix -] 40 mg PO DAILY #30 tablet 05/05/17
[2017-05-05] MEDS: ASPIRIN COATED 81 MG TABLET.EC PO SCH (09:26)
[2017-05-05] MEDS: APIXABAN 5 MG TABLET PO SCH (09:26)
[2017-05-05] MEDS: POTASSIUM CHLORIDE TABS 20 MEQ TABLET.ER (FP) PO SCH (09:26)
[2017-05-05] MEDS ORDERED: FUROSEMIDE 40 MG TABLET (FP) PO SCH ×2 (10:00)
[2017-05-05 10:25] VITALS: BP 142/78; PULSE 118
== END 2017-05-05 10:23 | disposition home or self-care (01) | DRG 310 ==
LOC: JER 21:24 → JERBED 05-04 00:46 → UNDOADMIN 05-04 00:55 → JICU 05-04 01:52 → J2W 05-04 15:14
PROVIDERS: ADMIT Specialist; ATTEND Specialist
DX: I48.91 Unspecified atrial fibrillation (principal); I48.92 Unspecified atrial flutter; E11.9 Type 2 diabetes mellitus without complications; Z87.891 Personal history of nicotine dependence; E78.5 Hyperlipidemia, unspecified; I25.10 Atherosclerotic heart disease of native coronary artery without angina pectoris; Z95.1 Presence of aortocoronary bypass graft; E66.9 Obesity, unspecified; Z91.14 Patient's other noncompliance with medication regimen; E03.9 Hypothyroidism, unspecified; I50.9 Heart failure, unspecified; Z79.84 Long term (current) use of oral hypoglycemic drugs; Z68.34 Body mass index [BMI] 34.0-34.9, adult
CPT/HCPCS: 36415; 71010-TC; 80053; 82553; 83735; 83880; 84100; 84443; 84484; 85025; 85610; 85730; 90670; 90688; 93005; 93010; 99284-25; G0008; G0009; J1644

== ENCOUNTER 2017-05-06 12:43 | Inpatient (IN) | payer BC ==
[2017-05-06 13:01] VITALS: BMI 34.0
[2017-05-06] MEDS ORDERED: ADENOSINE 6 MG/2 ML VIAL IVPUSH ONE ×3 (13:19→13:40)
[2017-05-06] MEDS ORDERED: dilTIAZem HCL 50 MG/10 ML - 10 ML VIAL IVPUSH ONE (13:47)
[2017-05-06] MEDS ORDERED: dilTIAZem HCL 60 MG TABLET (FP) PO ONE (13:48)
[2017-05-06] MEDS ORDERED: dilTIAZem HCL 30 MG TABLET (FP) ONE ×2 (13:52→13:53)
[2017-05-06] MEDS ORDERED: dilTIAZem HCL 125 MG/25 ML - 25 ML VIAL ONE (13:52)
--- NOTE | 2017-05-06 13:52 | PDOC ---
History of Present Illness - General Chief Complaint: Tachycardia Stated Complaint: ELEVATED BP Time Seen by Provider: 05/06/17 13:19 History Source: Patient - History of Present Illness Timing/Duration: reports: constant Past History - Past Medical History Allergies/Adverse Reactions: Allergies Allergy/AdvReac Type Severity Reaction Status Date / Time No Known Allergies Allergy Verified 05/06/17 12:55 Home Medications: Ambulatory Orders Amiodarone HCl 200 mg PO DAILY 12/20/16 Aspirin [Aspirin EC] 81 mg PO DAILY 12/20/16 Glyburide 5 mg PO BID 12/20/16 Levothyroxine Sodium [Unithroid] 75 mg PO DAILY 12/20/16 Potassium Chloride [Klor-Con M20] 40 meq PO BID 12/20/16 Sitagliptin Phos/Metformin HCl [Janumet 50-1,000 mg Tablet] 1 tablet PO BID 06/28 Apixaban [Eliquis -] 5 mg PO BID #60 tablet 05/05/17 Aspirin Coated [Ecotrin -] 81 mg PO DAILY #30 tab 05/05/17 Diltiazem Cd [Cardizem Cd -] 240 mg PO DAILY #30 cap 05/05/17 Furosemide [Lasix -] 40 mg PO DAILY #30 tablet 05/05/17 Atorvastatin Ca [Lipitor] 20 mg PO HS 05/06/17 Anemia: No Asthma: No Cancer: No Cardiac Disorders: Yes ("WATER AROUND THE HEART.") CVA: No COPD: No CHF: Yes Dementia: No Diabetes: Yes GI Disorders: No Disorders: No HTN: Yes Hypercholesterolemia: Yes Liver Disease: No Seizures: No Thyroid Disease: No Other medical history: tachycardia, was hospitalized 2 days ago for - Surgical History Abdominal Surgery: No Appendectomy: No Cardiac Surgery: Yes (CORONARY BYPASS , 2 VESSELS) Cholecystectomy: No Lung Surgery: No Neurologic Surgery: No Orthopedic Surgery: No - Immunization History Immunization Up to Date: Yes - Suicide/Smoking/Psychosocial Hx Smoking History: Former smoker Have you smoked in the past 12 months: No If you are a former smoker, when did you quit?: 2006 Information on smoking cessation initiated: No Hx Alcohol Use: No Drug/Substance Use Hx: No Substance Use Type: Alcohol Hx Substance Use Treatment: No Cardiac Specific PMH - Complaint Specific PMHX Pacemaker: No Review of Systems - Review of Systems Constitutional: No: Chills, Fever Respiratory: No: Cough, Shortness of Breath Cardiac (ROS): Yes: Palpitations. No: Chest Pain, Lightheadedness, Syncope *Physical Exam - Vital Signs Last Vital Signs Temp Pulse Resp BP Pulse Ox 97.8 F 160 H 20 117/91 97 05/06/17 12:55 05/06/17 12:55 05/06/17 12:55 05/06/17 12:55 05/06/17 12:55 - Physical Exam General Appearance: Yes: Appropriately Dressed, Mild Distress HEENT: positive: Normal Voice Neck: positive: Supple Respiratory/Chest: positive: Lungs Clear, Normal Breath Sounds. negative: Respiratory Distress Cardiovascular: positive: S1, S2, Tachycardia Gastrointestinal/Abdominal: positive: Soft Integumentary: positive: Dry, Warm Neurologic: positive: Fully Oriented, Alert, Normal Mood/Affect ED Treatment Course - LABORATORY CBC & Chemistry Diagram: 05/06/17 13:40 05/06/17 13:40 - ADDITIONAL ORDERS Additional order review: Laboratory Results 05/06/17 13:40 Sodium 138 Potassium 4.5 Chloride 100 Carbon Dioxide 28 Anion Gap 10 BUN 22 H D Creatinine 0.9 Creat Clearance w eGFR > 60 Random Glucose 121 H D Calcium 9.3 Total Bilirubin 0.5 AST 64 H D ALT 96 H Alkaline Phosphatase 48 Creatine Kinase 307 Creatine Kinase Index 2.1 CK-MB (CK-2) 6.719 H Troponin I 0.02 Total Protein 7.5 Albumin 3.6 05/06/17 13:40 RBC 4.40 MCV 82.2 MCHC 33.5 RDW 19.2 H MPV 7.9 Neutrophils % 58.1 Lymphocytes % 24.5 D Monocytes % 13.1 H Eosinophils % 3.7 Basophils % 0.6 - RADIOLOGY Radiology Studies Ordered: Category Date Time Status CHEST X-RAY PORTABLE* [RAD] Stat Radiology 05/06/17 13:21 Completed - Medications Given in the ED: ED Medications Discontinued Medications Generic Name Dose Route Start Last Admin Trade Name Freq PRN Reason Stop Dose Admin Adenosine 6 mg 05/06/17 13:19 05/06/17 13:30 Adenocard - IVPUSH 05/06/17 13:20 6 mg ONCE ONE Administration Adenosine 12 mg 05/06/17 13:40 05/06/17 13:40 Adenocard - IVPUSH 05/06/17 13:41 12 mg ONCE ONE Administration Diltiazem HCl 20 mg 05/06/17 13:47 05/06/17 13:58 Cardizem Injection - IVPUSH 05/06/17 13:48 20 mg ONCE ONE Administration Diltiazem HCl 60 mg 05/06/17 13:48 05/06/17 13:58 Cardizem - PO 05/06/17 13:49 60 mg ONCE ONE Administration Medical Decision Making - Medical Decision Making 05/06/17 13:48 66-year-old male history of diabetes, hyperlipidemia, CAD c/p CABG w/ recurrent postop pleural effusions, postop A. fib/flutter, status post recent admission for Afib/aflutter that improved with cardizem drip in the ICU and sent home yesterday with 240 mg Cardizem daily and eliquis, here with palpitations that started today and states when he measured heart rate at home, it was in the 160s. Denies shortness of breath or palpitations. See exam SVT SVT to 150s on EKG -adenosine -labs -cards c/s -admit 05/06/17 14:01 No improvement in heart rate with both 6 mg and 12 mg of adenosine in ED. Case discussed with ED attending, who recommended 20 IV Cardizem with 60 po/ After given IV dose, pt's rpt ekg w/ afib to 120s, though 106 on monitor. Case discussed with Dr. Menchaca, who wants patient admitted to Dr. Flores. Still waiting for rn prior authorization to call back 05/06/17 14:27 HR back to 150s on monitor. As per ED attg, give another 10 mg po cardizem and start on drip 05/06/17 14:58 Case d/w Dr Fuentes who agrees w/ management in ED. Will continue to follow pt 05/06/17 15:15 Sinus tach to 98 BPM on monitor after cardizem drip. Reports feeling better. Dr Flores aware and pt admitted 05/06/17 17:17 *DC/Admit/Observation/Transfer Diagnosis at time of Disposition: Palpitation Afib Qualifiers: Atrial fibrillation type: unspecified Qualified Code(s): I48.91 - Unspecified atrial fibrillation - Discharge Dispostion Condition at time of disposition: Fair Admit: Yes - Referrals
[2017-05-06 14:13] LABS: BASOPHIL 0.6 % (0-2.0); EOSINOPHIL 3.7 % (0-4.5); MCH 27.5 pg (25.7-33.7); MCHC 33.5 g/dl (32.0-35.9); MEAN CELL VOLUME 82.2 fl (80-96); MEAN PLT VOLUME 7.9 fl (7.5-11.1); NEUTROPHILS 58.1 % (42.8-82.8); PLATELET COUNT 250 K/MM3 (134-434); RDW 19.2 % (11.9-15.9); WHITE BLOOD COUNT 7.7 K/mm3 (4.0-10.0)
[2017-05-06 14:24] LABS: ALBUMIN 3.6 g/dl (3.4-5.0); ANION GAP 10 (8-16); BILIRUBIN,TOTAL 0.5 mg/dL (0.2-1.0); CALCIUM 9.3 mg/dL (8.5-10.1); CO2 28 mmol/L (21-32); CPK 307 IU/L (39-308); CREATININE 0.9 mg/dL (0.7-1.3); GLUCOSE,RANDOM 121 mg/dL (74-106); SGPT/ALT 96 U/L (12-78); TOT PROT 7.5 g/dl (6.4-8.2)
[2017-05-06 14:26] LABS: ALK PHOS 48 U/L (45-117); TROPONIN I 0.02 ng/ml (0.00-0.05)
[2017-05-06] MEDS ORDERED: dilTIAZem HCL 50 MG/10 ML - 10 ML VIAL IVPUSH PRN (14:26)
[2017-05-06 14:28] LABS: SGOT/AST 64 U/L (15-37)
[2017-05-06] MEDS ORDERED: DILTIAZEM INJECTION 125 MG in DEXTROSE 5%-WATER - 100 ML IVPB SCH (14:30)
[2017-05-06] MEDS ORDERED: ACETAMINOPHEN 325 MG TABLET (FP) PO PRN (15:43)
--- NOTE | 2017-05-06 15:50 | HP ---
Admitting History and Physical - Primary Care Physician PCP: Hunter Menchaca - Admission Chief Complaint: My heart was going fast History of Present Illness: Mr Lizarraga is a very pleasant 66 year old male who comes in after finding his heart rate was elevated at home. He was recently discharged yesterday after a 24 hour stay secondary to atrial fibrillation with rvr. He was transitioned from diltiazem gtt to oral diltiazem with proper rate control and was discharged home with close follow up. He was without complaint this morning and was checking his heart rate and noted it was at 160. Because of that he came in. He denies fevers, chills, lightheadedness, dizziness, passing out, chest pain, shortness of breath, nausea, vomiting, diarrhea, constipation, difficulty or pain on urination, or swelling. He says he is feeling fine now. History Source: Patient Limitations to Obtaining History: No Limitations - Past Medical History Cardiovascular: Yes: AFIB, CAD Pulmonary: Yes: Other (Recurrent bilat pleural effusions) Endocrine: Yes: Diabetes Mellitus - Past Surgical History Past Surgical History: Yes: CABG - Smoking History Smoking history: Former smoker Have you smoked in the past 12 months: No If you are a former smoker, when did you quit?: 2006 - Alcohol/Substance Use Hx Alcohol Use: No History of Substance Use: reports: None - Social History ADL: Independent Occupation: electronics mechanic apprentice History of Recent Travel: No Home Medications - Allergies Allergies/Adverse Reactions: Allergies Allergy/AdvReac Type Severity Reaction Status Date / Time No Known Allergies Allergy Verified 05/06/17 12:55 - Home Medications Home Medications: Ambulatory Orders Amiodarone HCl 200 mg PO DAILY 12/20/16 Aspirin [Aspirin EC] 81 mg PO DAILY 12/20/16 Glyburide 5 mg PO BID 12/20/16 Levothyroxine Sodium [Unithroid] 75 mg PO DAILY 12/20/16 Potassium Chloride [Klor-Con M20] 40 meq PO BID 12/20/16 Sitagliptin Phos/Metformin HCl [Janumet 50-1,000 mg Tablet] 1 tablet PO BID 06/28 Apixaban [Eliquis -] 5 mg PO BID #60 tablet 05/05/17 Aspirin Coated [Ecotrin -] 81 mg PO DAILY #30 tab 05/05/17 Diltiazem Cd [Cardizem Cd -] 240 mg PO DAILY #30 cap 05/05/17 Furosemide [Lasix -] 40 mg PO DAILY #30 tablet 05/05/17 Atorvastatin Ca [Lipitor] 20 mg PO HS 05/06/17 Family Disease History - Family Disease History Family Disease History: Diabetes: Father, Other: Mother (alcoholism) Review of Systems Findings/Remarks: full review of systems obtained, as per HPI and otherwise negative Physical Examination Vital Signs: Vital Signs Temperature 36.6 C 05/06/17 12:55 Pulse Rate 160 H 05/06/17 12:55 Respiratory Rate 20 05/06/17 12:55 Blood Pressure 117/91 05/06/17 12:55 O2 Sat by Pulse Oximetry (%) 97 05/06/17 12:55 Constitutional: Yes: No Distress, Calm, Obese Eyes: Yes: Conjunctiva Clear, EOM Intact, PERRL HENT: Yes: Atraumatic, Normocephalic Cardiovascular: Yes: Regular Rate and Rhythm. No: Gallop, Murmur, Rub Respiratory: Yes: Regular, CTA Bilaterally. No: Rales, Rhonchi, Wheezes Gastrointestinal: Yes: Normal Bowel Sounds, Soft. No: Distention, Tenderness Extremities: Yes: WNL Edema: No Labs: CBC, BMP 05/06/17 13:40 05/06/17 13:40 Imaging - Results Chest X-ray: Report Reviewed, Image Reviewed EKG: Image Reviewed Problem List - Problems (1) Atrial fibrillation with RVR Assessment/Plan: -patient recently discharged for afib with rvr -was rate controlled on discharge, and asymptomatic today but incidentally found -currently in sinus rhythm, HR 90-100 -continue amiodarone -continue home diltiazem rate -will await cardiology evaluation and recommendations, may need to increase diltiazem to 360mg vs adding beta lea -continue eliquis Code(s): I48.91 - UNSPECIFIED ATRIAL FIBRILLATION (2) CAD (coronary artery disease) Assessment/Plan: -quiescent -continue home regimen Code(s): I25.10 - ATHSCL HEART DISEASE OF [place] CORONARY ARTERY W/O ANG PCTRS (3) CHF (congestive heart failure) Assessment/Plan: -no ECHO in chart -will d/w cardiology if systolic/diastolic/combined -not in exacerbation -continue lasix Code(s): I50.9 - HEART FAILURE, UNSPECIFIED Qualifiers: Congestive heart failure type: unspecified congestive heart failure type Congestive heart failure chronicity: chronic Qualified Code(s): I50.9 - Heart failure, unspecified (4) Diabetes mellitus Assessment/Plan: -continue janumet -continue glyburide -diabetic diet -monitor glucose on bmp Code(s): E11.9 - TYPE 2 DIABETES MELLITUS WITHOUT COMPLICATIONS (5) Hypothyroid Assessment/Plan: -continue synthroid -TSH slightly elevated -check FT4 as well since on amiodarone Code(s): E03.9 - HYPOTHYROIDISM, UNSPECIFIED
[2017-05-06] MEDS: metFORMIN HCL 500 MG TABLET (FP) PO SCH (17:07)
[2017-05-06] MEDS: sitaGLIPtin PHOSPHATE 50 MG TABLET PO SCH (17:10)
--- NOTE | 2017-05-06 18:21 | CON.CARD ---
Cardiology Consult (text) - Consultation Consultation Note: cc: palps, aflutter with rvr hpi: 66 m hx dm, hld, cad s/p cabg 12/2016 with recurrent post op pleural effs/ pericardial eff resolved with nsaids, post op afib/flutter that resolved, here with palps, aflutter with rvr. Pt had been feeling well until last week when noticed heart racing, fatigue. Went to ER and had aflutter with VR 140s. Admitted and rate controlled with dilt and converted on own to sr and discharged yesterday AM on dilt. [place] fine all day yesterday and then woke up this AM and initially felt fine but then noticed palps and checked pulse at home and was 150s so came back to ER. Had no cp, sob, dizzy, loc, pnd, orthopnea, le edema. Again in ER found aflutter with rvr, rate controlled with iv dilt. Sees dr cruz for cardio. pmh: per hpi psh: cabg social: no tob fam: no premature cad ros: per hpi; no nvd, cough, nasal congestion, orta, vision changes, gib, hematuria, dysuria, muscle pains meds: Ambulatory Orders Home Medications Medication Instructions Recorded Amiodarone HCl 200 mg PO DAILY 12/20/16 Aspirin [Aspirin EC] 81 mg PO DAILY 12/20/16 Glyburide 5 mg PO BID 12/20/16 Levothyroxine Sodium [Unithroid] 75 mg PO DAILY 12/20/16 Potassium Chloride [Klor-Con M20] 40 meq PO BID 12/20/16 Sitagliptin Phos/Metformin HCl 1 tablet PO BID 12/20/16 [Janumet 50-1,000 mg Tablet] Apixaban [Eliquis -] 5 mg PO BID #60 tablet 05/05/17 Aspirin Coated [Ecotrin -] 81 mg PO DAILY #30 tab 05/05/17 Diltiazem Cd [Cardizem Cd -] 240 mg PO DAILY #30 cap 05/05/17 Furosemide [Lasix -] 40 mg PO DAILY #30 tablet 05/05/17 Atorvastatin Ca [Lipitor] 20 mg PO HS 05/06/17 pe: Vital Signs Period Temp Pulse Resp BP Sys/Suero Pulse Ox Last 24 Hr 97.8 F 90-160 20 111-117/64-91 97 nad no jvd irreg s1s2 no mrg cta bl nl eff aaox3 no le e/c/c abd nd nt pos bs no jaundice diaphoresis pos dp pt no carotid bruits Laboratory Last Values WBC 7.7 K/mm3 (4.0-10.0) 05/06/17 13:40 RBC 4.40 M/mm3 (4.00-5.60) 05/06/17 13:40 Hgb 12.1 GM/dL (11.7-16.9) 05/06/17 13:40 Hct 36.2 % (35.4-49) 05/06/17 13:40 MCV 82.2 fl (80-96) 05/06/17 13:40 MCH 27.5 pg (25.7-33.7) 05/06/17 13:40 MCHC 33.5 g/dl (32.0-35.9) 05/06/17 13:40 RDW 19.2 % (11.9-15.9) H 05/06/17 13:40 Plt Count 250 K/MM3 (134-434) 05/06/17 13:40 MPV 7.9 fl (7.5-11.1) 05/06/17 13:40 Neutrophils % 58.1 % (42.8-82.8) 05/06/17 13:40 Lymphocytes % 24.5 % (8-40) D 05/06/17 13:40 Monocytes % 13.1 % (3.8-10.2) H 05/06/17 13:40 Eosinophils % 3.7 % (0-4.5) 05/06/17 13:40 Basophils % 0.6 % (0-2.0) 05/06/17 13:40 Sodium 138 mmol/L (136-145) 05/06/17 13:40 Potassium 4.5 mmol/L (3.5-5.1) 05/06/17 13:40 Chloride 100 mmol/L (98-107) 05/06/17 13:40 Carbon Dioxide 28 mmol/L (21-32) 05/06/17 13:40 Anion Gap 10 (8-16) 05/06/17 13:40 BUN 22 mg/dL (7-18) H D 05/06/17 13:40 Creatinine 0.9 mg/dL (0.7-1.3) 05/06/17 13:40 Creat Clearance w eGFR > 60 (>60) 05/06/17 13:40 Random Glucose 121 mg/dL (74-106) H D 05/06/17 13:40 Calcium 9.3 mg/dL (8.5-10.1) 05/06/17 13:40 Total Bilirubin 0.5 mg/dL (0.2-1.0) 05/06/17 13:40 AST 64 U/L (15-37) H D 05/06/17 13:40 ALT 96 U/L (12-78) H 05/06/17 13:40 Alkaline Phosphatase 48 U/L (45-117) 05/06/17 13:40 Creatine Kinase 307 IU/L (39-308) 05/06/17 13:40 Creatine Kinase Index 2.1 % (0.0-5.0) 05/06/17 13:40 CK-MB (CK-2) 6.719 ng/mL (0.5-3.6) H 05/06/17 13:40 Troponin I 0.02 ng/ml (0.00-0.05) 05/06/17 13:40 Total Protein 7.5 g/dl (6.4-8.2) 05/06/17 13:40 Albumin 3.6 g/dl (3.4-5.0) 05/06/17 13:40 ecg 05/06/17: aflutter with rvr, nl qtc, no ischemic changes cxr: clear lungs echo 01/2017: tds; mild dec lvef, mild dec rv fcn, small pericardial eff, no sig valve path a/p: 66 m hx dm, hld, cad s/p cabg 12/2016 with recurrent post op pleural effs/ pericardial eff resolved with nsaids, post op afib/flutter that resolved, here with palps, aflutter with rvr. aflutter with rvr: -pt had hx of post cabg afib/flutter treated temporarily with amio and coumadin , both stopped shortly after cabg -had been feeling well until last week when developed rvr again. was admitted and rate controlled on dilt and then converted on own to SR -SR lasted a day and then came back to ER with aflutter and rvr again -hr improved after iv dilt now. Since po dilt did not control his HR when he went back into aflutter, will dc and try toprol 50 bid instead -cont tele -chadsvasc is 3 so has indication for ac. cont eliquis. hld: -cont statin cad, cabg: -stable, no signs acs, no anginal sxs -cont statin, asa recurrent pleural effs/pericardial eff post cabg: -required thoracentesis in past -completed course of nsaids with resolution of effusions -currently no sig pleural effs -will check echo to see if any pericardial eff again that may be causing aflutter to act up again -will check crp as well
[2017-05-06] MEDS: APIXABAN 5 MG TABLET PO SCH (21:56)
[2017-05-06] MEDS: ATORVASTATIN CA 20 MG TABLET (FP) PO SCH (21:56)
[2017-05-06] MEDS: METOPROLOL SUCCINATE 50 MG TAB.SR.24H (FP) PO SCH (21:56)
[2017-05-06] MEDS: POTASSIUM CHLORIDE TABS 20 MEQ TABLET.ER (FP) PO SCH (21:56)
[2017-05-06] MEDS ORDERED: PATIENT'S OWN MEDICATION (NON-FORMULARY) (Sitagliptin Phos/Metformin Hcl [Janumet 50-1,000 PO SCH (22:00)
[2017-05-07 05:31] LABS: URINE APPEARANCE CLEAR; URINE BILIRUBIN NEGATIVE (NEGATIVE); URINE BLOOD NEGATIVE (NEGATIVE); URINE COLOR YELLOW; URINE GLUCOSE (UA) NEGATIVE (NEGATIVE); URINE KETONE NEGATIVE (NEGATIVE); URINE LEUK ESTERASE NEGATIVE (NEGATIVE); URINE NITRITE NEGATIVE (NEGATIVE); URINE PROTEIN NEGATIVE (NEGATIVE)
[2017-05-07] MEDS ORDERED: PT OWN MED DRAWER 7, Y5N ONE ×2 (06:14→15:27)
[2017-05-07] MEDS: metFORMIN HCL 500 MG TABLET (FP) PO SCH ×2 (06:28→16:34)
[2017-05-07] MEDS: sitaGLIPtin PHOSPHATE 50 MG TABLET PO SCH ×2 (06:28→16:34)
[2017-05-07] MEDS: LEVOTHYROXINE NA 75 MCG TABLET (FP) PO SCH (06:28)
[2017-05-07] MEDS: glyBURIDE 5 MG TABLET (UD) PO SCH ×3 (06:29→16:34)
[2017-05-07 07:39] LABS: BASOPHIL 0.7 % (0-2.0); EOSINOPHIL 4.1 % (0-4.5); MCH 27.8 pg (25.7-33.7); MCHC 33.5 g/dl (32.0-35.9); MEAN CELL VOLUME 83.1 fl (80-96); MEAN PLT VOLUME 7.7 fl (7.5-11.1); NEUTROPHILS 57.3 % (42.8-82.8); PLATELET COUNT 242 K/MM3 (134-434); RDW 18.5 % (11.9-15.9)
--- NOTE | 2017-05-07 08:42 | PN ---
Progress Note (short form) - Note Progress Note: s: no cp sob palps dizzy o: Vital Signs Period Temp Pulse Resp BP Sys/Suero Pulse Ox Last 24 Hr 97.8 F-98 F 75-160 20-20 111-125/63-91 97-97 nad no jvd rrr s1s2 no mrg cta bl nl eff aaox3 no le e/c/c abd nd nt pos bs no jaundice diaphoresis Current Medications Generic Name Dose Route Start Last Admin Trade Name Freq PRN Reason Stop Dose Admin Acetaminophen 650 mg 05/06/17 15:43 Tylenol - PO Q4H PRN FEVER OR PAIN Apixaban 5 mg 05/06/17 22:00 05/06/17 21:56 Eliquis - PO 5 mg BID PRISCILLA Administration Aspirin 81 mg 05/07/17 10:00 Ecotrin - PO DAILY PRISCILLA Atorvastatin Calcium 20 mg 05/06/17 22:00 05/06/17 21:56 Lipitor - PO 20 mg HS PRISCILLA Administration Diltiazem HCl 10 mg 05/06/17 14:26 Cardizem Injection - IVPUSH Q4H PRN TACHYCARDIA Furosemide 40 mg 05/07/17 10:00 Lasix - PO DAILY PRISCILLA Glyburide 5 mg 05/07/17 07:00 05/07/17 07:48 Diabeta - PO 5 mg BID@0700,1630 PRISCILLA Administration Levothyroxine Sodium 75 mcg 05/07/17 07:00 05/07/17 06:28 Synthroid - PO 75 mcg DAILY@0700 PRISCILLA Administration Metformin HCl 1,000 mg 05/06/17 16:30 05/07/17 06:28 Glucophage - PO 1,000 mg BID@0700,1630 PRISCILLA Administration Metoprolol Succinate 50 mg 05/06/17 22:00 05/06/17 21:56 Toprol Xl - PO 50 mg BID PRISCILLA Administration Potassium Chloride 40 meq 05/06/17 22:00 05/06/17 21:56 K-Dur - PO 40 meq BID PRISCILLA Administration Sitagliptin Phosphate 50 mg 05/06/17 16:30 05/07/17 06:28 Januvia - PO 50 mg BID@0700,1630 PRISCILLA Administration CBC, BMP 05/07/17 05:28 ecg 05/06/17: aflutter with rvr, nl qtc, no ischemic changes cxr: clear lungs echo 01/2017: tds; mild dec lvef, mild dec rv fcn, small pericardial eff, no sig valve path tele: in sr since last night a/p: 66 m hx dm, hld, cad s/p cabg 12/2016 with recurrent post op pleural effs/ pericardial eff resolved with nsaids, post op afib/flutter that resolved, here with palps, aflutter with rvr. aflutter with rvr: -pt had hx of post cabg afib/flutter treated temporarily with amio and coumadin , both stopped shortly after cabg -had been feeling well until last week when developed rvr again. was admitted and rate controlled on dilt and then converted on own to SR -SR lasted a day and then came back to ER with aflutter and rvr again -hr improved after iv dilt now. Since po dilt did not control his HR when he went back into aflutter, stopped and tried toprol 50 bid instead -overnight on 05/06 he went back into sr -cont tele today to see that HR remains in sr and no further rvr occurring -chadsvasc is 3 so has indication for ac. cont eliquis. hld: -cont statin cad, cabg: -stable, no signs acs, no anginal sxs -cont statin, asa recurrent pleural effs/pericardial eff post cabg: -required thoracentesis in past -completed course of nsaids with resolution of effusions -currently no sig pleural effs -will check echo to see if any pericardial eff again that may be causing aflutter to act up again -will check crp as well
[2017-05-07 08:58] LABS: ANION GAP 6 (8-16); CALCIUM 8.7 mg/dL (8.5-10.1); CO2 30 mmol/L (21-32); CREATININE 0.8 mg/dL (0.7-1.3); GLUCOSE,RANDOM 140 mg/dL (74-106); MAGNESIUM 2.1 mg/dL (1.8-2.4); PHOSPHOROUS 3.3 mg/dL (2.5-4.9)
[2017-05-07 09:00] LABS: FREE T4 1.31 ng/dl (0.76-1.16)
[2017-05-07] MEDS: ASPIRIN COATED 81 MG TABLET.EC PO SCH (09:00)
[2017-05-07] MEDS: POTASSIUM CHLORIDE TABS 20 MEQ TABLET.ER (FP) PO SCH ×2 (09:00→22:07)
[2017-05-07] MEDS: FUROSEMIDE 40 MG TABLET (FP) PO SCH (09:00)
[2017-05-07] MEDS: APIXABAN 5 MG TABLET PO SCH ×2 (09:00→22:07)
[2017-05-07] MEDS: METOPROLOL SUCCINATE 50 MG TAB.SR.24H (FP) PO SCH ×2 (09:00→22:07)
[2017-05-07] MEDS ORDERED: AMIODARONE HCL 200 MG TABLET (FP) PO SCH (10:00)
--- NOTE | 2017-05-07 12:37 | PN ---
Progress Note, Physician Chief Complaint: Mr Lizarraga is without complaint. Says he is up walking without difficulty or palpitations. No cp, sob, n/v. - Current Medication List Current Medications: Active Medications Acetaminophen (Tylenol -) 650 mg PO Q4H PRN PRN Reason: FEVER OR PAIN Apixaban (Eliquis -) 5 mg PO BID [facility] Last Admin: 05/07/17 09:00 Dose: 5 mg Aspirin (Ecotrin -) 81 mg PO DAILY [facility] Last Admin: 05/07/17 09:00 Dose: 81 mg Atorvastatin Calcium (Lipitor -) 20 mg PO HS [facility] Last Admin: 05/06/17 21:56 Dose: 20 mg Diltiazem HCl (Cardizem Injection -) 10 mg IVPUSH Q4H PRN PRN Reason: TACHYCARDIA Furosemide (Lasix -) 40 mg PO DAILY [facility] Last Admin: 05/07/17 09:00 Dose: 40 mg Glyburide (Diabeta -) 5 mg PO BID@0700,1630 [facility] Last Admin: 05/07/17 07:48 Dose: 5 mg Levothyroxine Sodium (Synthroid -) 75 mcg PO DAILY@0700 [facility] Last Admin: 05/07/17 06:28 Dose: 75 mcg Metformin HCl (Glucophage -) 1,000 mg PO BID@0700,1630 [facility] Last Admin: 05/07/17 06:28 Dose: 1,000 mg Metoprolol Succinate (Toprol Xl -) 50 mg PO BID [facility] Last Admin: 05/07/17 09:00 Dose: 50 mg Potassium Chloride (K-Dur -) 40 meq PO BID [facility] Last Admin: 05/07/17 09:00 Dose: 40 meq Sitagliptin Phosphate (Januvia -) 50 mg PO BID@0700,1630 [facility] Last Admin: 05/07/17 06:28 Dose: 50 mg - Objective Vital Signs: Vital Signs Temperature 36.6 C 05/07/17 10:00 Pulse Rate 76 05/07/17 10:00 Respiratory Rate 18 05/07/17 10:00 Blood Pressure 108/58 05/07/17 10:00 O2 Sat by Pulse Oximetry (%) 98 05/07/17 09:00 Constitutional: Yes: No Distress, Calm, Obese Cardiovascular: Yes: Regular Rate and Rhythm. No: Gallop, Murmur, Rub Respiratory: Yes: Regular, CTA Bilaterally. No: Rales, Rhonchi, Wheezes Gastrointestinal: Yes: Normal Bowel Sounds, Soft. No: Distention, Tenderness Extremities: Yes: WNL Edema: No Labs: CBC, BMP 05/07/17 05:28 05/07/17 05:28 Problem List - Problems (1) Atrial fibrillation with RVR Code(s): I48.91 - UNSPECIFIED ATRIAL FIBRILLATION (2) CAD (coronary artery disease) Code(s): I25.10 - ATHSCL HEART DISEASE OF [place] CORONARY ARTERY W/O ANG PCTRS (3) CHF (congestive heart failure) Code(s): I50.9 - HEART FAILURE, UNSPECIFIED Qualifiers: Congestive heart failure type: unspecified congestive heart failure type Congestive heart failure chronicity: chronic Qualified Code(s): I50.9 - Heart failure, unspecified (4) Diabetes mellitus Code(s): E11.9 - TYPE 2 DIABETES MELLITUS WITHOUT COMPLICATIONS (5) Hypothyroid Code(s): E03.9 - HYPOTHYROIDISM, UNSPECIFIED Assessment/Plan (1) Atrial fibrillation with RVR Assessment/Plan: -appreciate cardiology assistance and note reviewed -changed to toprol xl -currently in sinus rhythm -ECHO to be performed -continue eliquis Code(s): I48.91 - UNSPECIFIED ATRIAL FIBRILLATION (2) CAD (coronary artery disease) Assessment/Plan: -quiescent -continue home regimen Code(s): I25.10 - ATHSCL HEART DISEASE OF [place] CORONARY ARTERY W/O ANG PCTRS (3) CHF (congestive heart failure) Assessment/Plan: -ECHO pending -continue lasix Code(s): I50.9 - HEART FAILURE, UNSPECIFIED Qualifiers: Congestive heart failure type: unspecified congestive heart failure type Congestive heart failure chronicity: chronic Qualified Code(s): I50.9 - Heart failure, unspecified (4) Diabetes mellitus Assessment/Plan: -continue janumet -continue glyburide -diabetic diet -monitor glucose on bmp Code(s): E11.9 - TYPE 2 DIABETES MELLITUS WITHOUT COMPLICATIONS (5) Hypothyroid Assessment/Plan: -TSH and FT4 elevated -suspect some thyroid damage secondary to amiodarone -will hold on changing now since amiodarone discontinued -outpatient follow up 4-6 weeks after discharge with TFTs to evaluate if synthroid needs adjustment Code(s): E03.9 - HYPOTHYROIDISM, UNSPECIFIED
--- NOTE | 2017-05-07 13:53 | EKG ---
Test Reason : Blood Pressure : / mmHG Vent. Rate : 127 BPM Atrial Rate : 312 BPM P-R Int : 000 ms QRS Dur : 078 ms QT Int : 340 ms P-R-T Axes : 000 -36 037 degrees QTc Int : 494 ms ATRIAL FLUTTER RAPID AND VARIABLE VENTRICULAR RESPONSE LEFT AXIS DEVIATION INCOMPLETE RBBB LOW VOLTAGE QRS DIFFUSE ST AND T ABNORMALITIES INFERIOR INFARCT (CITED ON OR BEFORE 06-MAY-2017) CANNOT RULE OUT ANTERIOR INFARCT (CITED ON OR BEFORE 06-MAY-2017) ABNORMAL ECG WHEN COMPARED WITH ECG OF 06-MAY-2017 13:45, QUESTIONABLE CHANGE IN INITIAL FORCES OF ANTEROLATERAL LEADS ABSENSE OF VENTRICULAR ECTOPIC BEATS REPEAT EKG IF CLINICALLY INDICATED Confirmed by MARY DE LEÓN MD ([id number] on 05/07/2017 1:52:41 PM Referred By: Confirmed By:MARY DE LEÓN MD
--- NOTE | 2017-05-07 13:57 | EKG ---
Test Reason : Blood Pressure : / mmHG Vent. Rate : 099 BPM Atrial Rate : 150 BPM P-R Int : 000 ms QRS Dur : 146 ms QT Int : 390 ms P-R-T Axes : 000 -84 079 degrees QTc Int : 500 ms POOR DATA QUALITY, INTERPRETATION MAY BE ADVERSELY AFFECTED SUBOPTIMAL STUDY ATRIAL FIBRILLATION WITH PREMATURE VENTRICULAR OR ABERRANTLY CONDUCTED COMPLEXES ,AT TIMES SUCCESSIVE LEFT AXIS DEVIATION ,LEFTN ANTERIOR HEMIBLOCK RIGHT BUNDLE BRANCH BLOCK POSSIBLE LATERAL INFARCT (CITED ON OR BEFORE 06-MAY-2017) INFERIOR INFARCT CANNOT BE EXCLUDED ABNORMAL ECG WHEN COMPARED WITH ECG OF 06-MAY-2017 13:38, ATRIAL FIBRILLATION HAS REPLACED SINUS RHYTHM VENT. RATE HAS DECREASED BY 57 BPM RIGHT BUNDLE BRANCH BLOCK IS NOW PRESENT QUESTIONABLE CHANGE IN INITIAL FORCES OF ANTEROLATERAL LEADS CLINICAL CORRELATION IS RECOMMENDED Confirmed by MARY DE LEÓN MD ([id number]) on 05/07/2017 1:57:05 PM Referred By: Confirmed By:MARY DE LEÓN MD
--- NOTE | 2017-05-07 14:01 | EKG ---
Test Reason : Blood Pressure : / mmHG Vent. Rate : 156 BPM Atrial Rate : 156 BPM P-R Int : 000 ms QRS Dur : 100 ms QT Int : 334 ms P-R-T Axes : 000 -71 073 degrees QTc Int : 538 ms ATRIL RHYTHM IS ,PROBABLE ATRIAL FLUTTER WITH 2:1 AV CONDUCTION LEFT ANTERIOR FASCICULAR BLOCK INCOMPLETE RBBB CANNOT RULE OUT ANTERIOR INFARCT (CITED ON OR BEFORE 06-MAY-2017) ABNORMAL ECG WHEN COMPARED WITH ECG OF 06-MAY-2017 13:14, NO SIGNIFICANT CHANGE WAS FOUND FOLLOW UP EKG IS RECOMMENDED Confirmed by MARY DE LEÓN MD ([id number]) on 05/07/2017 2:00:53 PM Referred By: Confirmed By:MARY DE LEÓN MD
--- NOTE | 2017-05-07 14:09 | EKG ---
Test Reason : Blood Pressure : / mmHG Vent. Rate : 157 BPM Atrial Rate : 079 BPM P-R Int : 000 ms QRS Dur : 102 ms QT Int : 340 ms P-R-T Axes : 000 -71 065 degrees QTc Int : 549 ms ATRIAL RHYTHM IS PROBABLY ATRIAL FLUTTER WITH 2:1 AV CONDUCTION LEFT ANTERIOR FASCICULAR BLOCK INCOMPLETE RIGHT BUNDLE BRANCH BLOCK ABNORMAL ECG WHEN COMPARED WITH ECG OF NONSPECIFIC T WAVE ABNORMALITY NO LONGER EVIDENT IN LATERAL LEADS FOLLOW TRACING INDICATED Confirmed by MARY DE LEÓN MD ([id number]) on 05/07/2017 2:08:28 PM Referred By: Confirmed By:MARY DE LEÓN MD
--- NOTE | 2017-05-07 20:10 | EKG ---
Test Reason : Blood Pressure : / mmHG Vent. Rate : 149 BPM Atrial Rate : 149 BPM P-R Int : 168 ms QRS Dur : 106 ms QT Int : 348 ms P-R-T Axes : 000 -71 087 degrees QTc Int : 548 ms ATRIAL RHYTHM IS UNCERTAIN,PROBABLT A SUPRAVENTRICULAR TACHYCARDIA RSR' OR QR PATTERN IN V1 SUGGESTS RIGHT VENTRICULAR CONDUCTION DELAY LEFT ANTERIOR FASCICULAR BLOCK CANNOT RULE OUT ANTERIOR INFARCT , AGE UNDETERMINED ABNORMAL ECG NO PREVIOUS ECGS AVAILABLE SUBMITTED ON 05-07-2017 FOLLOW UP TRACING IS RECOMMENDED Confirmed by MARY DE LEÓN MD ([id number]) on 05/07/2017 8:10:15 PM Referred By: Confirmed By:MARY DE LEÓN MD
[2017-05-07] MEDS: ATORVASTATIN CA 20 MG TABLET (FP) PO SCH (22:07)
[2017-05-08] MEDS: sitaGLIPtin PHOSPHATE 50 MG TABLET PO SCH (06:28)
[2017-05-08] MEDS ORDERED: PT OWN MED DRAWER 7, Y5N ONE (06:28)
[2017-05-08] MEDS: glyBURIDE 5 MG TABLET (UD) PO SCH (06:28)
[2017-05-08] MEDS: metFORMIN HCL 500 MG TABLET (FP) PO SCH (06:29)
[2017-05-08] MEDS: LEVOTHYROXINE NA 75 MCG TABLET (FP) PO SCH (06:29)
[2017-05-08 07:33] LABS: BASOPHIL 0.7 % (0-2.0); EOSINOPHIL 2.5 % (0-4.5); MCH 27.5 pg (25.7-33.7); MCHC 33.2 g/dl (32.0-35.9); MEAN CELL VOLUME 83.1 fl (80-96); MEAN PLT VOLUME 7.8 fl (7.5-11.1); NEUTROPHILS 68.9 % (42.8-82.8); PLATELET COUNT 266 K/MM3 (134-434); RDW 19.1 % (11.9-15.9); WHITE BLOOD COUNT 8.4 K/mm3 (4.0-10.0)
[2017-05-08 07:48] LABS: ANION GAP 6 (8-16); CALCIUM 8.7 mg/dL (8.5-10.1); CO2 32 mmol/L (21-32); CREATININE 0.9 mg/dL (0.7-1.3); GLUCOSE,RANDOM 169 mg/dL (74-106); MAGNESIUM 2.2 mg/dL (1.8-2.4); PHOSPHOROUS 3.4 mg/dL (2.5-4.9)
[2017-05-08] MEDS: FUROSEMIDE 40 MG TABLET (FP) PO SCH (09:52)
[2017-05-08] MEDS: POTASSIUM CHLORIDE TABS 20 MEQ TABLET.ER (FP) PO SCH (09:52)
[2017-05-08] MEDS: METOPROLOL SUCCINATE 50 MG TAB.SR.24H (FP) PO SCH (09:52)
[2017-05-08] MEDS: APIXABAN 5 MG TABLET PO SCH (09:52)
[2017-05-08] MEDS: ASPIRIN COATED 81 MG TABLET.EC PO SCH (09:52)
--- NOTE | 2017-05-08 10:07 | PN ---
Progress Note (short form) - Note Progress Note: s: no cp sob palps dizzy o: Vital Signs Period Temp Pulse Resp BP Sys/Suero Pulse Ox Last 24 Hr 97.7 F-98.6 F 88-98 18-20 108-145/58-76 98 nad no jvd rrr s1s2 no mrg cta bl nl eff aaox3 no le e/c/c abd nd nt pos bs no jaundice diaphoresis Current Medications Generic Name Dose Route Start Last Admin Trade Name Freq PRN Reason Stop Dose Admin Acetaminophen 650 mg 05/06/17 15:43 Tylenol - PO Q4H PRN FEVER OR PAIN Apixaban 5 mg 05/06/17 22:00 05/08/17 09:52 Eliquis - PO 5 mg BID PRISCILLA Administration Aspirin 81 mg 05/07/17 10:00 05/08/17 09:52 Ecotrin - PO 81 mg DAILY PRISCILLA Administration Atorvastatin Calcium 20 mg 05/06/17 22:00 05/07/17 22:07 Lipitor - PO 20 mg HS PRISCILLA Administration Diltiazem HCl 10 mg 05/06/17 14:26 Cardizem Injection - IVPUSH Q4H PRN TACHYCARDIA Furosemide 40 mg 05/07/17 10:00 05/08/17 09:52 Lasix - PO 40 mg DAILY PRISCILLA Administration Glyburide 5 mg 05/07/17 07:00 05/08/17 06:28 Diabeta - PO 5 mg BID@0700,1630 PRISCILLA Administration Levothyroxine Sodium 75 mcg 05/07/17 07:00 05/08/17 06:29 Synthroid - PO 75 mcg DAILY@0700 PRISCILLA Administration Metformin HCl 1,000 mg 05/06/17 16:30 05/08/17 06:29 Glucophage - PO 1,000 mg BID@0700,1630 PRISCILLA Administration Metoprolol Succinate 50 mg 05/06/17 22:00 05/08/17 09:52 Toprol Xl - PO 50 mg BID PRISCILLA Administration Potassium Chloride 40 meq 05/06/17 22:00 05/08/17 09:52 K-Dur - PO 40 meq BID PRISCILLA Administration Sitagliptin Phosphate 50 mg 05/06/17 16:30 05/08/17 06:28 Januvia - PO 50 mg BID@0700,1630 PRISCILLA Administration CBC, BMP 05/08/17 05:30 05/08/17 05:30 ecg 05/06/17: aflutter with rvr, nl qtc, no ischemic changes cxr: clear lungs echo 01/2017: tds; mild dec lvef, mild dec rv fcn, small pericardial eff, no sig valve path tele: sr a/p: 66 m hx dm, hld, cad s/p cabg 12/2016 with recurrent post op pleural effs/ pericardial eff resolved with nsaids, post op afib/flutter that resolved, here with palps, aflutter with rvr. aflutter with rvr: -pt had hx of post cabg afib/flutter treated temporarily with amio and coumadin , both stopped shortly after cabg -had been feeling well until last week when developed rvr again. was admitted and rate controlled on dilt and then converted on own to SR -SR lasted a day and then came back to ER with aflutter and rvr again -hr improved after iv dilt now. Since po dilt did not control his HR when he went back into aflutter, stopped and tried toprol 50 bid instead -overnight on 05/06 he went back into sr, has remained in sr past 2 days now -chadsvasc is 3 so has indication for ac. cont eliquis. hld: -cont statin cad, cabg: -stable, no signs acs, no anginal sxs -cont statin, asa recurrent pleural effs/pericardial eff post cabg: -required thoracentesis in past -completed course of nsaids with resolution of effusions -currently no sig pleural effs -crp here is 4.5, down from 8 earlier this month in office -will check echo to see if any pericardial eff again that may be causing aflutter to act up again-->done, report pending if echo w/o significant abnormalities then pt ok for dc today
[2017-05-08 11:22] VITALS: BP 113/76; PULSE 94; TEMP 97.8
--- NOTE | 2017-05-08 13:22 | DS ---
Physical Examination Vital Signs: Vital Signs Temperature 36.6 C 05/08/17 10:00 Pulse Rate 94 H 05/08/17 10:00 Respiratory Rate 22 05/08/17 10:00 Blood Pressure 113/76 05/08/17 10:00 O2 Sat by Pulse Oximetry (%) 94 L 05/08/17 09:00 Labs: CBC, BMP 05/08/17 05:30 05/08/17 05:30 Discharge Summary Reason For Visit: ATRIAL FIBRILLATION Current Active Problems Afib (Acute) Palpitation (Acute) Condition: Good - Instructions Diet, Activity, Other Instructions: resume previous diet and activity Referrals: Hunter Menchaca MD [Primary Care Provider] - Erwin Fuentes MD [Staff Physician] - Disposition: HOME - Home Medications Comprehensive Discharge Medication List: Ambulatory Orders Aspirin [Aspirin EC] 81 mg PO DAILY 12/20/16 Glyburide 5 mg PO BID 12/20/16 Levothyroxine Sodium [Unithroid] 75 mg PO DAILY 12/20/16 Potassium Chloride [Klor-Con M20] 40 meq PO BID 12/20/16 Sitagliptin Phos/Metformin HCl [Janumet 50-1,000 mg Tablet] 1 tablet PO BID 06/28 Apixaban [Eliquis -] 5 mg PO BID #60 tablet 05/05/17 Aspirin Coated [Ecotrin -] 81 mg PO DAILY #30 tab 05/05/17 Furosemide [Lasix -] 40 mg PO DAILY #30 tablet 05/05/17 Atorvastatin Ca [Lipitor] 20 mg PO HS 05/06/17 Metoprolol Succinate [Toprol XL -] 50 mg PO BID #60 tab.sr 05/08/17
== END 2017-05-08 14:25 | disposition home or self-care (01) | DRG 310 ==
LOC: JER 12:43 → JERBED 15:15 → J4W 18:30
PROVIDERS: ADMIT Internal Medicine; ATTEND Internal Medicine
DX: I48.91 Unspecified atrial fibrillation (principal); Z87.891 Personal history of nicotine dependence; I48.92 Unspecified atrial flutter; E11.9 Type 2 diabetes mellitus without complications; E78.5 Hyperlipidemia, unspecified; I25.10 Atherosclerotic heart disease of native coronary artery without angina pectoris; Z95.1 Presence of aortocoronary bypass graft; E66.9 Obesity, unspecified; E03.9 Hypothyroidism, unspecified; I50.9 Heart failure, unspecified; Z68.34 Body mass index [BMI] 34.0-34.9, adult; Z79.84 Long term (current) use of oral hypoglycemic drugs
CPT/HCPCS: 36415; 71010-TC; 80048; 80053; 81003; 82553; 83735; 84100; 84439; 84484; 85025; 86140; 93005; 93010; 93306-TC; 99281-25